=== PATIENT | female | born 1945 | race Caucasian/White ===

== ENCOUNTER 2025-01-27 18:08 | Emergency (ER) | payer OTHER, SELFPAY ==
[2025-01-27 18:08] VITALS: BMI 26.4
[2025-01-27 18:10] VITALS: BP 143/84
[2025-01-27 18:34] LABS: Hematocrit 40.5 % (37.0-47.0); Hemoglobin 13.4 g/dL (12.0-16.0); Mean Corp Hgb Conc. 33.1 g/dL (33.0-37.0); Mean Corpuscular Volume 89.8 fL (81.0-99.0); Nucleated Red Blood Cells % 0 %; Platelet Count 270 10^3/uL (130-400); Red Cell Dist. Width 14.1 % (11.5-14.5)
[2025-01-27 18:55] LABS: ALT (SGPT) < 10 U/L (0-35); AST (SGOT) 15 U/L (14-36); Albumin 4.5 g/dl (3.5-5.0); Alkaline Phosphatase 82 U/L (38-126); Blood Urea Nitrogen 15 mg/dl (7-17); Calcium 9.5 mg/dl (8.4-10.2); Carbon Dioxide 27 mmol/L (22-30); Chloride 101 mmol/L (98-107); Glucose 103 mg/dl (70-99); Potassium 3.9 mmol/L (3.5-5.1); Sodium 136 mmol/L (135-145); Total Protein 8.0 g/dl (6.3-8.2); eGFR > 60.00
[2025-01-27 21:17] VITALS: BP 163/93
[2025-01-27 22:00] VITALS: BP 144/79
[2025-01-27 23:00] VITALS: BP 142/78
--- NOTE | 2025-01-27 23:20 | ED.GENMED ---
History of Present Illness
<Jacky Crowley MD, Resident - Last Filed: 01/29/25 14:13>
General
Chief Complaint: Breathing Problem
Source: patient
Time Seen by Provider: 01/27/25 23:00
History of Present Illness
History of Present Illness:
Ms. Greenberg is a 79-year-old female with hypothyroidism and hypertension who presents via ambulance from her doctor's office with 3 weeks of 'tightness' in her neck, 2 weeks of left-sided congestion, and recent cough. She reports that she was at
her doctor's appointment today, which she scheduled in order to work up the reason for her congestion and cough. At her appointment, the nurse felt that Ms. Greenberg had decreased breath sounds on the left and possible pneumonia. She recommended
that Ms. Greenberg to come to the ED via ambulance [facility] for further evaluation and treatment. Mr. Greenberg denies fevers, chills, night sweats, pain, production of phlegm, and recent infection. She feels symptomatically better laying on her right side
vs flat or on her left side. She states that she has had about a 22 pound weight loss since May, which she attributes to her TSH being very high. Her thyroid medication was just adjusted on 01/07/2025 because of this.
Past History
<Jacky Crowley MD, Resident - Last Filed: 01/29/25 14:13>
Past History
ED Past Medical History: HTN and Hypothyroidism
ED Past Surgical History: Orthopedic
Social History
Living: alone
Phy Exam
<Jacky Crowley MD, Resident - Last Filed: 01/29/25 14:13>
General Physical Exam
General Presentation: mild distress
General Skin: warm and dry
General Mental: alert
Cardiovascular Exam
Cardiovascular Exam: regular rate/rhythm and no edema
Pulmonary Exam
Pulmonary Exam: no respiratory distress, decreased breath sounds (over left lung) and other (expiratory wheezing)
Gastrointestinal Exam
Gastrointestinal Exam: non tender, soft and non distended
Scores
<Jacky Crowley MD, Resident - Last Filed: 01/29/25 14:13>
Heart Failure Risk
Heart Failure Risk Score: Not Applicable
Course
<Jacky Crowley MD, Resident - Last Filed: 01/29/25 14:13>
Orders/Labs/Results
Orders:
Orders
01/27/25 18:14
Electrocardiogram (*1) Urgent
Reason for Study: Shortness of Breath
EKG- Treatment ONCE
CXR2 [CR Chest - 2 Views ] Urgent
Comment:
Reason For Exam: sob on exertion x2-3 wks
01/27/25 18:26
Complete Blood Count/With Diff Urgent
Comprehensive Metabolic Panel Urgent
TSH Reflex To Free T4 Urgent
Comment: ADD ON
01/27/25 23:38
Add On- LAB Urgent
Tests Added?: TSH with reflex to T4
01/27/25 23:46
COVID-19 Antigen Urgent
Source: Nasal Swab
01/28/25
CT Chest With Iv Contrast Urgent
Reason For Exam: mass on CXR
Abnormal Lab Results
01/27/25
18:26
Neutrophils % 76.4 H %
(42.2-75.2)
Lymphocytes % 15.3 L %
(20.5-51.1)
Glucose 103 H mg/dl
(70-99)
01/27/25 18:26
01/27/25 18:26
Vital Signs
Initial and Last Documented VS:
Initial Vital Signs
Temp Pulse Resp BP Pulse Ox
98.2 F 85 16 143/84 98
01/27/25 18:10 01/27/25 18:10 01/27/25 18:10 01/27/25 18:10 01/27/25 18:10
Last Documented Vital Signs
Temp Pulse Resp BP Pulse Ox
98.2 F 76 20 139/72 90
01/27/25 18:10 01/28/25 02:00 01/28/25 02:00 01/28/25 02:00 01/28/25 02:00
<Moises Lynn, DO - Last Filed: 01/28/25 02:09>
Orders/Labs/Results
Orders:
Orders
01/27/25 18:14
Electrocardiogram (*1) Urgent
Reason for Study: Shortness of Breath
EKG- Treatment ONCE
CXR2 [CR Chest - 2 Views ] Urgent
Comment:
Reason For Exam: sob on exertion x2-3 wks
01/27/25 18:26
Complete Blood Count/With Diff Urgent
Comprehensive Metabolic Panel Urgent
TSH Reflex To Free T4 Urgent
Comment: ADD ON
01/27/25 23:38
Add On- LAB Urgent
Tests Added?: TSH with reflex to T4
01/27/25 23:46
COVID-19 Antigen Urgent
Source: Nasal Swab
01/28/25
CT Chest With Iv Contrast Urgent
Reason For Exam: mass on CXR
Abnormal Lab Results
01/27/25
18:26
Neutrophils % 76.4 H %
(42.2-75.2)
Lymphocytes % 15.3 L %
(20.5-51.1)
Glucose 103 H mg/dl
(70-99)
01/27/25 18:26
01/27/25 18:26
Vital Signs
Initial and Last Documented VS:
Initial Vital Signs
Temp Pulse Resp BP Pulse Ox
98.2 F 85 16 143/84 98
01/27/25 18:10 01/27/25 18:10 01/27/25 18:10 01/27/25 18:10 01/27/25 18:10
Last Documented Vital Signs
Temp Pulse Resp BP Pulse Ox
98.2 F 76 20 139/72 90
01/27/25 18:10 01/28/25 02:00 01/28/25 02:00 01/28/25 02:00 01/28/25 02:00
<Jacky Crowley MD, Resident - Last Filed: 01/29/25 14:13>
MDM/Problems Addressed
Differential Diagnosis Includes:
Thymoma
Lymphoma
Thyroid/Parathyroid Mass
PNA
Lymphangioma
MDM/Problems Addressed:
Ms. Greenberg is a 79-year-old female with hypothyroidism and hypertension who presents via ambulance from her doctor's office with 3 weeks of 'tightness' in her neck, 2 weeks of left-sided congestion, and recent cough. CXR in ED shows large right
hilar/mediastinal mass for which further evaluation with dedicated CT chest is recommended.
#Mediastinal Mass
#Left-sided Congestion
#Cough
- CXR as above
- CBC and CMP wnl
- CT Chest with IV Contrast:
Large mass likely with epicenter in the medial right upper lobe extending to the hilum, highly suspicious for malignancy with likely malignant mediastinal and right hilar lymphadenopathy as well as small right upper lobe satellite lesion suspicious
for malignancy, as detailed above.
Mild pericardial thickening and/or tiny pericardial effusion.
Left adrenal gland thickening, incompletely included on this study.
- TSH 0.9
- Covid 19 (-)
- Discharged with instructions to follow-up with Thoracic Surgery (Dr. Serge Moore)
<Jacky Crowley MD, Resident - Last Filed: 01/29/25 14:13>
*Pulse Oximetry
SaO2: 95
Oxygen Mode of Delivery: Room air
Patient hypoxic: no
*Critical Care Note
Total Time (30-74mins, 75-104mins- exclusive of procedures): Not Applicable
ED Attending Note
<Jacky Crowley MD, Resident - Last Filed: 01/29/25 14:13>
-
Portions of this chart may have been created with voice recognition software.� Occasional wrong word or��sound alike� substitutions may have occurred due to the inherent limitations of voice recognition software.
<Moises Lynn, - Last Filed: 01/28/25 02:09>
ED Attending Note
Patient seen and examined by attending physician: Yes
I performed a history and physical exam of patient and discussed management with resident, I reviewed resident's note and agree with documented findings and plan of care.: Yes
ED Attending Note:
I reviewed and agree with history and treatment plan by Jacky Crowley MD.
My exam revealed
Physical Exam
General: no apparent distress, not acutely ill
Neck: supple. no meningeal signs. normal posterior pharynx
Heart: s1/s2 regular rate and rhythm, no murmur. equal radial
pulses.
HEENT: Pupils equal round reactive to light, EOMI
Lungs: no acute respiratory distress. clear bilaterally, intermittent cough
Abdomen: normal bowel sounds. not tender. no CVAT
Neuro: alert and oriented. no focal neurological deficits cranial nerves II through XII intact
Skin: no rash
Psychiatric: well kept. interactive and cooperative
Extremities: no edema. no calf tenderness. negative homans. good distal pulses
79-year-old female with right upper lobe mass. Vital signs stable. Discharge patient to follow-up with Serge Moore thoracic surgical oncologist. Return precautions given.
Discharge Plan
Departure
Patient Disposition: Home (Routine Discharge)
Date of Disposition: 01/28/25
Time of Disposition: 02:07
Patient with high blood pressure during this ER visit?: Yes
Condition: Good
Discharge Problem:
Mass of upper lobe of right lung
Instructions: Lung cancer, BLOOD PRESSURE
Prescriptions:
No Action
ibuprofen 200 mg Tablet
200 mg PO Q6H PRN (Reason: arthritis, pain)
Referrals:
Angelito Peña I., [Family Provider, Internal Medicine]
Serge Moore MD [Active, Surgical] - Call in 1-3 days for appt
Interventions
Interventions:
*Risk Screen - Suicide Last Done: 01/27/25 18:10
*General Assessment Last Done: 01/28/25 02:45
*Neglect/Abuse Screening Last Done: 01/27/25 18:10
*ED- Fall Risk Assessment Last Done: 01/28/25 02:45
*ED COVID-19 Vaccine History Last Done: 01/28/25 02:45
*Nursing Disposition Last Done: 01/28/25 02:45
ED- Cardiac Assessment Last Done: 01/27/25 21:44
ED- Pulmonary Assessment Last Done: 01/27/25 21:44
Discharge Date and Time
Discharge Date/Time: 01/28/25 02:47
Print Language: SOMALI
[2025-01-28] VITALS: BP 151/80
[2025-01-28 00:02] LABS: COVID-19 Antigen Negative (Negative)
[2025-01-28 01:14] VITALS: BP 143/75
[2025-01-28 02:00] VITALS: BP 139/72
== END 2025-01-28 02:47 | disposition home or self-care (01) ==
LOC: EMR 18:08
PROVIDERS: Emergency Medicine; EMERGENCY PHYSICIAN Emergency Medicine; FAMILY PHYSICIAN Internal Medicine
DX: R91.8 Other nonspecific abnormal finding of lung field (principal); E03.9 Hypothyroidism, unspecified; I10 Essential (primary) hypertension
CPT/HCPCS: 99285; 71046; 71260; 80053; 84443; 85025; 87811; 93005; Q9967

== ENCOUNTER 2025-02-07 16:10 | Emergency (ER) | payer OTHER, SELFPAY ==
[2025-02-07 16:12] VITALS: BP 138/74
--- NOTE | 2025-02-07 18:48 | ED.GENMED ---
History of Present Illness
General
Chief Complaint: DVT/Possible Blood Clot
Source: patient
Exam Limitations: none
Time Seen by Provider: 02/07/25 17:56
Nursing documentation reviewed up to this point in time: agreed with
History of Present Illness
History of Present Illness:
79-year-old female with a past medical history as noted presents to the ER for evaluation of left arm redness and swelling. Patient reports that last week she had CT done for mass noted on chest x-ray and had an IV placed in her left arm at that
time (found during ER visit). She says that over the past few days she started to develop redness in the area of IV placement and it has progressed into the forearm and upper arm today which prompted her to go to urgent care and ultimately she was
referred to the ER. She reports mild pain but denies any other acute complaints. She denies any chest pain or shortness of breath�in fact she was having some shortness of breath over the past few weeks but it has improved recently. She denies any
other acute complaints. She denies any history of DVT/PE. She has been following with Dr. Nicholas for her lung mass and plan is for biopsy in the near future pending cardiac clearance/risk assessment.
Past History
Past History
ED Past Medical History: HTN and Hypothyroidism
ED Past Surgical History: Orthopedic
Social History
Living: alone
Review of Systems
Review of Systems
All Other Systems: ROS reviewed and negative except as documented in HPI and ROS
Constitutional: Denies fever
Respiratory: Denies trouble breathing
Cardiac: Denies chest pain
ABD/GI: Denies abdominal pain
: Denies flank pain
Musculoskeletal: Reports edema; Denies neck pain or back pain
Skin: Reports other (Left arm redness)
Phy Exam
Physical Exam
Physical Exam:
General: Awake, alert, oriented x3; no acute distress
Head: Normocephalic, atraumatic
Eyes: Conjunctiva normal
Throat: Airway intact, handling secretions
Neck: Trachea midline, supple without meningismus
Lungs: Breathing comfortably with no distress
Heart: Regular rate
Neuro: Grossly intact
Skin: no rash
Extremities: Patient has erythema on the ventral surface of the left forearm just distal to the antecubital fossa and has some edema in the left forearm and upper arm; small streaking erythema up the medial aspect of the upper arm; mildly tender to
touch along the area of erythema; strong left radial pulse present; no edema in the legs or the right arm
Scores
Heart Failure Risk
Heart Failure Risk Score: Not Applicable
Heart Score for Chest Pain Patients
STEMI patient?: Not applicable
Withdrawal Assessment of Alcohol
Withdrawal Assessment Completed?: Not applicable
Course
Orders/Labs/Results
Orders:
Orders
02/07/25 16:17
US Periph Venous UPPER Ext LT Urgent
Comment:
Reason For Exam: swelling to LUE
02/07/25 18:55
Basic Metabolic Panel Urgent
Complete Blood Count/No Diff Urgent
TSH Reflex To Free T4 Urgent
02/07/25 19:13
Apixaban [Eliquis] 10 mg PO ONCE ONE
Abnormal Lab Results
02/07/25
18:55
MCHC 32.9 L g/dL
(33.0-37.0)
Glucose 105 H mg/dl
(70-99)
02/07/25 18:55
02/07/25 18:55
Vital Signs
Initial and Last Documented VS:
Initial Vital Signs
Temp BP Pulse Ox
37.2 C 138/74 117
02/07/25 16:12 02/07/25 16:12 02/07/25 16:12
Last Documented Vital Signs
Temp Pulse Resp BP Pulse Ox
36.7 C 89 18 147/90 99
02/07/25 19:15 02/07/25 19:15 02/07/25 19:15 02/07/25 19:15 02/07/25 18:57
MDM/Problems Addressed
Differential Diagnosis Includes:
DVT, cellulitis, thrombophlebitis
MDM/Problems Addressed:
79-year-old female presents for evaluation of redness and swelling of the left upper arm after IV placed for CT last week. Vitals and exam as above. She was sent for an ultrasound in triage which showed nonocclusive thrombus in the left axillary
cephalic and basilic veins as well as in one of the brachial veins consistent with nonocclusive DVT. Will plan to start on Eliquis but send basic labs to check renal function, platelets and hemoglobin.
Labs showed no clinically significant abnormalities. Patient given first dose of Eliquis here and given instructions on follow-up plan. All questions answered.
*Radiology
Radiology exam reviewed: radiology read reviewed
*Pulse Oximetry
SaO2: 99
Oxygen Mode of Delivery: Room air
Patient hypoxic: no (99%)
*Critical Care Note
Total Time (30-74mins, 75-104mins- exclusive of procedures): Not Applicable
Data Reviewed
Review of Other/Old Records Reveals: Labs, Records and Radiology Studies
ED Attending Note
-
Portions of this chart may have been created with voice recognition software.� Occasional wrong word or��sound alike� substitutions may have occurred due to the inherent limitations of voice recognition software.
Discharge Plan
Departure
Patient Disposition: Home (Routine Discharge)
Date of Disposition: 02/07/25
Time of Disposition: 19:38
Patient with high blood pressure during this ER visit?: Yes
Discharge Problem:
Deep vein thrombosis (DVT) of left upper extremity
Instructions: Deep Vein Thrombosis (Blood Clots in the Legs) (DC)
Prescriptions:
New
Eliquis 5 mg tablet
5 mg PO BID Qty: 60 0RF
Eliquis 5 mg tablet
10 mg PO BID 7 Days Qty: 28 0RF
Rx Instructions:
You should take 10 mg twice daily for 1 week; take 5 mg twice daily thereafter
No Action
ibuprofen 200 mg Tablet
200 mg PO Q6H PRN (Reason: arthritis, pain)
Referrals:
Angelito Peña DO [Family Provider, Internal Medicine] - Follow up in 1 week
Alessia Romero MD [Active, Hematology / Oncology] - Call in 1-3 days for appt
Referral Note: Hematology
Activity Restrictions/Additional Instructions:
You can apply warm compresses to your arm to try and help with the redness and swelling. You should take the blood thinner as prescribed�please note that for the Eliquis dosing in the first week you should take 10 mg (2 tabs) twice daily;
thereafter you should continue taking 5 mg twice daily. 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
Thank you for visiting the Emergency Department at [facility].
1. Please schedule a follow up appointment as directed. Call first thing tomorrow morning to make an appointment.
2. If indicated, please take your medications as instructed and indicated on discharge paperwork.
3. If any of your symptoms do not improve, or persist, or become more severe within 6-12 hours, please return to the emergency department for further care.
4. Please return to the emergency department if you develop a headache, neck pain/stiffness, fever greater than 100.4F, chest pain, shortness of breath, persistent nausea, vomiting, slurred speech, difficulty walking, numbness/tingling, weakness,
signs of infection or any other symptoms that are worrisome to you.
Please call [phone] if you have any questions.
Interventions
Interventions:
*Risk Screen - Suicide Last Done: 02/07/25 16:15
*General Assessment Last Done: 02/07/25 18:00
*Neglect/Abuse Screening Last Done: 02/07/25 16:15
*ED COVID-19 Vaccine History Last Done: 02/07/25 18:00
ED- Cardiac Assessment Last Done: 02/07/25 18:00
ED- Pulmonary Assessment Last Done: 02/07/25 18:00
ED-Peripheral Vascular Assessment Last Done: 02/07/25 18:00
ED-Skin Assessment Last Done: 02/07/25 18:00
Discharge Date and Time
Print Language: [id number]
[2025-02-07 19:08] LABS: Hematocrit 38.6 % (37.0-47.0); Hemoglobin 12.7 g/dL (12.0-16.0); Mean Corp Hgb Conc. 32.9 g/dL (33.0-37.0); Mean Corpuscular Volume 89.6 fL (81.0-99.0); Platelet Count 294 10^3/uL (130-400); Red Cell Dist. Width 14.0 % (11.5-14.5)
[2025-02-07 19:15] VITALS: BP 147/90
[2025-02-07] MEDS: ELIQUIS 10 MG PO (19:24)
[2025-02-07 19:25] LABS: Blood Urea Nitrogen 13 mg/dl (7-17); Calcium 9.5 mg/dl (8.4-10.2); Carbon Dioxide 26 mmol/L (22-30); Chloride 101 mmol/L (98-107); Glucose 105 mg/dl (70-99); Potassium 3.9 mmol/L (3.5-5.1); Sodium 135 mmol/L (135-145); eGFR > 60.00
== END 2025-02-07 19:48 | disposition home or self-care (01) ==
LOC: EMR 16:10
PROVIDERS: EMERGENCY PHYSICIAN Emergency Medicine; FAMILY PHYSICIAN Internal Medicine
DX: I82.622 Acute embolism and thrombosis of deep veins of left upper extremity (principal); I10 Essential (primary) hypertension; E03.9 Hypothyroidism, unspecified
CPT/HCPCS: 99284; 80048; 84443; 85027; 93971

== ENCOUNTER → 2025-02-18 15:23 | Outpatient (REF) | payer OTHER, SELFPAY | LOC: HWRCS 15:23 | PROVIDERS: ATTENDING PHYSICIAN Internal Medicine Cardiovascular Disease; FAMILY PHYSICIAN Internal Medicine | DX: Z01.818 Encounter for other preprocedural examination (principal) | CPT/HCPCS: 93306 ==

== ENCOUNTER 2025-02-25 14:17 | Inpatient (IN) | payer OTHER, SELFPAY ==
[2025-02-25] VITALS (7 sets, daily range): BP systolic 116–130; BP diastolic 61–83; BMI 24.8
--- NOTE | 2025-02-25 11:43 | ED.GENMED ---
History of Present Illness
<Oumar Jorge PA-C - Last Filed: 02/25/25 13:40>
General
Chief Complaint: Breathing Problem
Source: patient, records and ambulance crew
Time Seen by Provider: 02/25/25 11:19
History of Present Illness
History of Present Illness:
79-year-old female diagnosed recently with a right upper lung mass earlier in January, second visit in the month just a couple of days ago diagnosed with a left upper extremity DVT, currently on Eliquis presenting to the emergency department for
evaluation with EMS from home due to worsening shortness of breath that started this morning but patient stating that it has been progressive over the last month since her diagnosis. She is currently on 4 L nasal cannula, notes that she normally
has never needed O2 requirements. Notes that she has had significant exertional dyspnea. Waiting to hear from the platform inspector office for when she is going to go for her bronchoscopy/biopsy of the mass. She endorses cough but nonproductive, no
hemoptysis. Denies any fevers, chest pain, pleurisy, lower extremity edema. No other concerns at this time.
Past History
<Oumar Jorge PA-C - Last Filed: 02/25/25 13:40>
Past History
ED Past Medical History: Cancer, HTN and Hypothyroidism
ED Past Surgical History: Orthopedic and Tonsilectomy
Social History
Tobacco: Smoker (1/2 ppd x 60 years)
Alcohol: Occasional
Drug: None
Personal:
Living: alone
Review of Systems
<Oumar Jorge PA-C - Last Filed: 02/25/25 13:40>
Review of Systems
All Other Systems: ROS reviewed and negative except as documented in HPI and ROS
Phy Exam
<Oumar Jorge PA-C - Last Filed: 02/25/25 13:40>
Physical Exam
Physical Exam:
GENERAL: Alert , appears older than stated age, uncomfortable, dyspneic
HEAD: Normocephalic atraumatic
EYE: Clear conjunctiva
NECK: Supple
ENT: o/p clr, mmm.
CARDIAC: Regular rate and rhythm .
LUNGS: Rhonchorous lung sounds throughout with scattered wheezing most pronounced in the posterior lung montoya, diminished lung sounds right upper lung, mild accessory muscle use and tachypnea noted
ABDOMEN: Soft, without focal tenderness, no r/g, no cvat
NEUROLOGICAL: Alert and oriented
SKIN: Warm and dry, skin intact.
MUSCULOSKELETAL: well perfused. no edema
PSYCH: Normal and appropriate interaction.
Scores
<Oumar Jorge PA-C - Last Filed: 02/25/25 13:40>
Heart Failure Risk
Heart Failure Risk Score: Not Applicable
Heart Score for Chest Pain Patients
STEMI patient?: Not applicable
Withdrawal Assessment of Alcohol
Withdrawal Assessment Completed?: Not applicable
Course
<Oumar Jorge PA-C - Last Filed: 02/25/25 13:40>
Orders/Labs/Results
Orders:
Orders
02/25/25 11:26
Electrocardiogram (*1) Urgent
Reason for Study: Shortness of Breath
EKG- Treatment ONCE
CXR Port [CR Chest Portable - 1 View] Urgent
Comment:
Reason For Exam: sob
Reason Study Needs to be Portable: Patient Unstable
02/25/25 11:29
Ipratropium/Albuterol Sulfate [Duoneb] 3 ml INH R NOW ONE
MethylPREDNISolone PF [Solu-Medrol Pf] 40 mg IV NOW STA
02/25/25 12:09
COVID-19 Antigen Urgent
Source: Nasal Swab
Complete Blood Count/With Diff Urgent
NT-proBNP Urgent
Troponin I Urgent
Venous Blood Gas Urgent
%Oxygen/Room Air: 4L NC
02/25/25 12:11
Cefepime HCl [Maxipime] 2,000 mg IV NOW STA
02/25/25 13:04
Comprehensive Metabolic Panel Urgent
02/25/25 13:20
Sterile Water [Sterile Water For Injection] 10 ml .ROUTE .STK-MED ONE
Abnormal Lab Results
02/25/25 02/25/25
12:09 13:04
WBC 11.5 H 10^3/uL
(4.8-10.8)
MCHC 32.4 L g/dL
(33.0-37.0)
RDW 14.7 H %
(11.5-14.5)
Absolute Neuts (auto) 10.6 H 10^3/uL
(1.4-6.5)
Absolute Lymphs (auto) 0.5 L 10^3/uL
(1.2-3.4)
Neutrophils % 91.8 H %
(42.2-75.2)
Lymphocytes % 4.3 L %
(20.5-51.1)
VBG pO2 55 H mmHg
(30-50)
VBG HCO3 29.2 H mmol/L
(22-27)
Glucose 111 H mg/dl
(70-99)
02/25/25 12:09
02/25/25 13:04
Vital Signs
Initial and Last Documented VS:
Initial Vital Signs
Temp Pulse Resp BP Pulse Ox
98.0 F 63 16 128/76 99
02/25/25 11:17 02/25/25 11:17 02/25/25 11:17 02/25/25 11:17 02/25/25 11:17
Last Documented Vital Signs
Temp Pulse Resp BP Pulse Ox
98.0 F 88 24 126/77 100
02/25/25 11:17 02/25/25 12:45 02/25/25 12:45 02/25/25 12:00 02/25/25 12:45
<Bentley Quach MD - Last Filed: 02/25/25 13:48>
Orders/Labs/Results
Orders:
Orders
02/25/25 11:26
Electrocardiogram (*1) Urgent
Reason for Study: Shortness of Breath
EKG- Treatment ONCE
CXR Port [CR Chest Portable - 1 View] Urgent
Comment:
Reason For Exam: sob
Reason Study Needs to be Portable: Patient Unstable
02/25/25 11:29
Ipratropium/Albuterol Sulfate [Duoneb] 3 ml INH R NOW ONE
MethylPREDNISolone PF [Solu-Medrol Pf] 40 mg IV NOW STA
02/25/25 12:09
COVID-19 Antigen Urgent
Source: Nasal Swab
Complete Blood Count/With Diff Urgent
NT-proBNP Urgent
Troponin I Urgent
Venous Blood Gas Urgent
%Oxygen/Room Air: 4L NC
02/25/25 12:11
Cefepime HCl [Maxipime] 2,000 mg IV NOW STA
02/25/25 13:04
Comprehensive Metabolic Panel Urgent
02/25/25 13:20
Sterile Water [Sterile Water For Injection] 10 ml .ROUTE .STK-MED ONE
Abnormal Lab Results
02/25/25 02/25/25
12:09 13:04
WBC 11.5 H 10^3/uL
(4.8-10.8)
MCHC 32.4 L g/dL
(33.0-37.0)
RDW 14.7 H %
(11.5-14.5)
Absolute Neuts (auto) 10.6 H 10^3/uL
(1.4-6.5)
Absolute Lymphs (auto) 0.5 L 10^3/uL
(1.2-3.4)
Neutrophils % 91.8 H %
(42.2-75.2)
Lymphocytes % 4.3 L %
(20.5-51.1)
VBG pO2 55 H mmHg
(30-50)
VBG HCO3 29.2 H mmol/L
(22-27)
Glucose 111 H mg/dl
(70-99)
02/25/25 12:09
02/25/25 13:04
Vital Signs
Initial and Last Documented VS:
Initial Vital Signs
Temp Pulse Resp BP Pulse Ox
98.0 F 63 16 128/76 99
02/25/25 11:17 02/25/25 11:17 02/25/25 11:17 02/25/25 11:17 02/25/25 11:17
Last Documented Vital Signs
Temp Pulse Resp BP Pulse Ox
98.0 F 88 24 126/77 100
02/25/25 11:17 02/25/25 12:45 02/25/25 12:45 02/25/25 12:00 02/25/25 12:45
<Oumar Jorge PA-C - Last Filed: 02/25/25 13:40>
MDM/Problems Addressed
Differential Diagnosis Includes:
Progression of lung cancer
Malignant effusion
PE
Pneumonia or other infectious etiology
Pneumothorax
COPD
Less likely ACS
CHF
MDM/Problems Addressed:
79-year-old female presenting to the ER with EMS for progressively worsening shortness of breath, made acutely worse this morning. Currently in the early stages of workup for suspected right upper lobe lung cancer. Patient notes some frustration
with the outpatient workup process as she has not heard back from the pulmonology office about her bronchoscopy. Arrives to the ER with significant work of breathing, 1 sentence dyspneic and appears short of breath. Will continue on 4 L nasal
cannula. I did consider a stat CTA of the chest to rule out PE however patient is already on Eliquis, properly dosed and did have a complication from the CT with IV contrast done just earlier in January. Patient is hoping to avoid getting CT
scan here. Will treat with a nebulizer and dose of steroid. Stat chest x-ray ordered. Plan for admission
Chronic conditions affecting care: Cancer
Acute Exacerbation and/or Progression of Chronic Illness: Cancer
<Oumar Jorge PA-C - Last Filed: 02/25/25 13:40>
*Radiology
Radiology exam reviewed: preliminary read by ED provider (Continued right upper lobe lung mass, bilateral small effusion)
*Pulse Oximetry
SaO2: 99
Oxygen Mode of Delivery: Room air
Patient hypoxic: no
*Laboratory Chief Interpretation
Rate: normal
Heart Rate: 68
Rhythm: sinus
*Critical Care Note
Total Time (30-74mins, 75-104mins- exclusive of procedures): Not Applicable
Data Reviewed
Review of Other/Old Records Reveals: Labs, Records, Radiology Studies and Discharge Summary
<Oumar Jorge PA-C - Last Filed: 02/25/25 13:40>
Patient Management
Discussion with other providers: Hospitalist and [employer]ologist
Escalation/DeEscalation of care consider admission/obs:
Patient's labs noted for a mild leukocytosis. Chest x-ray was read by radiology as now new consolidation within the right upper lobe to go along with her known right upper lung mass. Will cover with Maxipime. Patient noted minimal improvement of
her shortness of breath following nebulizer treatment although physical exam sterling she had a much improved respiratory rate. I also notified pulmonary to see the patient in consult. Hospitalist team accepts for continued evaluation and treatment.
ED Attending Note
<Oumar Jorge PA-C - Last Filed: 02/25/25 13:40>
-
Portions of this chart may have been created with voice recognition software.� Occasional wrong word or��sound alike� substitutions may have occurred due to the inherent limitations of voice recognition software.
<Bentley Quach MD - Last Filed: 02/25/25 13:48>
ED Attending Note
Patient seen and examined by attending physician: Yes
ED Attending Note:
Patient recently diagnosed with lung cancer and subsequently left upper arm DVT, currently on Eliquis, presents to ED secondary to continual cough with worsening shortness of breath over the past 1 month. Patient upon arrival, found to be in no
acute respite distress, although is not hypoxic with the use of accessory muscle. Denies chest pain. Denies vomiting or diarrhea. Denies fever or chills.
Physical Exam
General: moderate respiratory distress, not acutely ill. afebrile.
Head: nc/at. eomi
Neck: supple. no jvd
Heart: s1/s2 regular rate and rhythm
Lungs: moderate respiratory distress. diminished breath sounds bilaterally. mild use of intercostal muscles noted
Abdomen: normal bowel sounds. not tender.
Neuro: alert and oriented x 3. no focal neurological deficits
Skin: no rash
Psychiatric: well kept. interactive and cooperative
Extremities: no edema. no calf tenderness.
History, exam, and chest x-ray concerning for potential obstructive pneumonia. Patient given nebulizer treatment upon arrival and placed on supplemental oxygen for symptomatic relief. Patient will be admitted to hospital service for continual
treatment, including IV antibiotics.
Discharge Plan
Departure
Patient Disposition: Admit
Date of Disposition: 02/25/25
Time of Disposition: 13:06
Presentation/result/management discussed w/ accepting MD/DO: Hospitalist
Discharge Problem:
Mass of right lung, Shortness of breath
Prescriptions:
No Action
Eliquis 5 mg tablet
5 mg PO BID Qty: 60 0RF
levothyroxine [Synthroid] 137 mcg Tablet
137 mcg PO MOTUWETHFRSA
simvastatin [Zocor] 20 mg Tablet
20 mg PO QPM
Interventions
Interventions:
*Risk Screen - Suicide Last Done: 02/25/25 11:17
*General Assessment Last Done: 02/25/25 11:17
*Neglect/Abuse Screening Last Done: 02/25/25 11:17
Discharge Date and Time
Print Language: TURKMEN
[2025-02-25] MEDS: DUONEB 3 ML INH (12:00)
[2025-02-25] MEDS: SOLU-MEDROL PF 40 MG IV (12:00)
[2025-02-25 12:27] LABS: Hematocrit 41.1 % (37.0-47.0); Hemoglobin 13.3 g/dL (12.0-16.0); Mean Corp Hgb Conc. 32.4 g/dL (33.0-37.0); Mean Corpuscular Volume 89.5 fL (81.0-99.0); Nucleated Red Blood Cells % 0 %; Platelet Count 350 10^3/uL (130-400); Red Cell Dist. Width 14.7 % (11.5-14.5)
[2025-02-25 12:45] LABS: Venous Blood Gas B.E. 3.8 mmol/L (-4 to +4); Venous Blood Gas O2 Sat % 87.8 %
[2025-02-25 12:55] LABS: COVID-19 Antigen Negative (Negative); Troponin I < 0.012 ng/ml
[2025-02-25] MEDS: MAXIPIME 2000 MG IV (13:32)
[2025-02-25 13:39] LABS: ALT (SGPT) 14 U/L (0-35); AST (SGOT) 20 U/L (14-36); Albumin 4.0 g/dl (3.5-5.0); Alkaline Phosphatase 74 U/L (38-126); Blood Urea Nitrogen 14 mg/dl (7-17); Calcium 9.2 mg/dl (8.4-10.2); Carbon Dioxide 30 mmol/L (22-30); Chloride 101 mmol/L (98-107); Glucose 111 mg/dl (70-99); Potassium 4.0 mmol/L (3.5-5.1); Sodium 138 mmol/L (135-145); Total Protein 7.5 g/dl (6.3-8.2); eGFR > 60.00
--- NOTE | 2025-02-25 13:50 | HPS.HSE ---
Family Physician
-
Family Physician: Angelito Peña
Chief Complaint
-
Shortness of breath
History of Present Illness
79-year-old female with progressive shortness of breath, dyspnea on exertion for the past 4 to 5 weeks. Dry cough. Denies fevers or chills. Has not been on any antibiotics in the past month. Lives alone.
Originally evaluated in our emergency room January 27 for shortness of breath. At that time there was mention of 3 weeks of tightness in her neck, 2 weeks of left-sided congestion and recent cough. Weight loss noted.
CT chest with IV contrast done at the time showed large mass with likely epicenter in the medial right upper lobe extending to the hilum highly specific suspicious for malignancy as well as likely malignant appearing mediastinal and right hilar
lymphadenopathy as well as small right upper lobe satellite lesions suspicious for malignancy. Mild pericardial thickening and/or tiny pericardial effusion.
She was discharged from the emergency room with recommendation to follow-up with Dr. Serge Moore.
Developed left arm swelling, and came back to the emergency room on February 07 for evaluation. Ultrasound done of the left arm showed nonocclusive thrombus within the left axillary, left cephalic, left basilic veins. Nonocclusive thrombus within
1 of 2 left brachial veins. She was discharged from the emergency room on Eliquis. Last dose was last night.
Subsequently was referred to pulmonary for lung biopsy. She saw Dr. Nicholas in the office a few weeks ago and he recommended cardiac clearance prior to performing lung biopsy. She saw her headend technician (Dr. Garcia) who provided clearance and
referred her back to pulmonary.
Unfortunately she has not yet been able to schedule a lung biopsy.
Admits to 35 pound weight loss associated with anorexia since May of this year.
Longstanding smoking history since the age of 21, half a pack a day. Last cigarette was yesterday.
Medical History
Past Medical History
Past Medical History: Reports Other
Additional Past Medical History:
Hypothyroidism, Sg's thyroiditis
Left upper extremity DVT
Essential hypertension
Past Surgical History: Reports Other
Additional Past Surgical History:
Right total knee replacement -2003
Social History
Tobacco: Smoker
Alcohol: Occasional
Drug: None
Personal:
Living: Alone
Employment: Not Employed
Family History
Family History: Not pertinent
Allergies / Home Medications
Allergies reflects when Allergies were last updated in [facility].
Home Medications with original date entered in [facility]
Allergy/Medication List:
Allergies
Allergy/AdvReac Type Severity Reaction Status Date / Time
codeine Allergy NIGHTMARES Verified 02/07/25 16:15
metoprolol Allergy dizziness Verified 02/07/25 16:15
BASE METALS Allergy Rash Uncoded 02/07/25 16:15
Home Medications
apixaban 5 mg tablet (Eliquis) 5 mg PO BID #60 tabs 02/07/25
levothyroxine 137 mcg tablet (Synthroid) 137 mcg PO MOTUWETHFRSA 02/25/25
simvastatin 20 mg tablet (Zocor) 20 mg PO QPM 02/25/25
Review of Systems
-
History Source: Patient
A 12 point ROS was completed and negative except as noted: Yes
Constitutional: Reports Weight Loss and Fatigue
Respiratory: Reports Cough and Trouble Breathing
Physical Exam
Vital Signs
Vital Signs
Temp Pulse Resp BP Pulse Ox
98.0 F 88 24 126/77 100
02/25/25 11:17 02/25/25 12:45 02/25/25 12:45 02/25/25 12:00 02/25/25 12:45
Physical Exam
General: Well Developed, Well Nourished, No Apparent Distress and Comfortable
HEENT: NormoCephalic, Anicteric and Moist mucous membranes
Respiratory: Rhonchi
Cardiac: S1/S2 and Regular Rhythm
Breast: Deferred by me
GI: Soft, Non Tender and Non Distended
Musculoskeletal: No Clubbing, No Cyanosis and Edema, Left Upper Extremity
Skin: Warm and Dry
Neuro: AO x 3
Hematologic/Lymphatic: No Lymphadenopathy
Psych: Calm
Laboratory Results
-
02/25/25 12:09
02/25/25 13:04
Laboratory Results
Total Bilirubin 0.9 mg/dl (0.2-1.3) 02/25/25 13:04
AST 20 U/L (14-36) 02/25/25 13:04
ALT 14 U/L (0-35) 02/25/25 13:04
Alkaline Phosphatase 74 U/L (38-126) 02/25/25 13:04
Troponin I < 0.012 ng/ml 02/25/25 12:09
Impression/Plan
-
Acute hypoxic respiratory failure -suspect multifactorial etiology including lung mass, postobstructive pneumonia, possible underlying COPD. Pulmonary embolism possible but seems less likely as she is already on anticoagulation.
Oxygenation stable on 4 L nasal cannula. Not on oxygen at home.
Admit to MedSurg.
Initiate treatment for possible COPD exacerbation given presentation with shortness of breath, wheezing, cough, and rhonchi. Prednisone, nebs, Mucinex, antibiotics.
Presumed community-acquired pneumonia -possibly postobstructive pneumonia in the setting of suspected lung cancer. Start ceftriaxone, azithromycin. Check urinary antigens.
Right-sided lung mass -highly suspicious for primary lung cancer. Has yet to get a biopsy. Consult pulmonary.
Hold Eliquis, use IV heparin pending biopsy.
Recent left upper extremity DVT -IV heparin as above.
Patient cannot afford to take further Eliquis given its high cost. She has been using samples provided to her from various physicians. She would prefer to switch to warfarin on discharge.
Hypothyroidism -on levothyroxine 137 mcg daily. Dose was reduced to 6 days a week due to elevated thyroid hormone levels.
TSH 1.38 on 02/07/2025.
Essential hypertension -previously on ramipril and hydrochlorothiazide but discontinued due to hypotension. Currently not on antihypertensives.
Hyperlipidemia -she is on simvastatin.
Tobacco dependence -smoking cessation advised.
Full code
[2025-02-25 17:39] LABS: APTT 26.4 Sec (23.4-35.0)
--- NOTE | 2025-02-25 17:50 | CON.PUL ---
Consultation
Consultation Request
Date/Time Consultation Requested: 02/25/2025
Date/Time Consultation Performed: 02/25/2025
Requesting Provider: Dr. Banegas
Performing Provider: Dr. Brian Watts
Reason for Consultation: Lung mass/possible postobstructive pneumonia
Medical History
-
History of Present Illness:
79-year-old woman who is a smoker, recently diagnosed with a lung mass and Rhonda. CAT scan of 01/28/2025 showed large masslike in the center of the medial right upper lobe. Multiple mediastinal lymphadenopathy.
Patient was seen by Dr. Nicholas in the outpatient office. Plan was to schedule bronchoscopy, patient required cardiac clearance first as she was having some cardiac symptoms. She was seen by Dr. Uribe on 02/18/2025. Cardiology assessment
recommending proceeding with bronchoscopy at a moderate risk.
-
Patient returns to the hospital on 02/25/2025 with progressive shortness of breath, dyspnea on exertion for the last 4 to 5 weeks. Dry cough. Denies fevers or chills. Denies hemoptysis.
Patient lives alone.
Developed left arm swelling at that time on February 07 showed nonocclusive thrombus of the left axillary, left cephalic left basilic veins. Nonocclusive thrombus of the brachial veins. Discharged on Eliquis-last dose taken on 02/24/2025.
-
Patient reports 30 pound weight loss with anorexia.
-
Ongoing smoking, last cigarette was yesterday.
-
We were consulted on 02/25/2025 for evaluation.
Past Medical History
Past Medical History: Other (See assessment and plan)
Social History
Tobacco: Smoker
Alcohol: Occasional
Drug: None
Personal:
Living: Alone
Employment: Not Employed
Family History
Family History: Reviewed & Not Pertinent
Allergies / Home Medications
Allergies
Allergy/AdvReac Type Severity Reaction Status Date / Time
codeine Allergy NIGHTMARES Verified 02/07/25 16:15
metoprolol Allergy dizziness Verified 02/07/25 16:15
BASE METALS Allergy Rash Uncoded 02/07/25 16:15
Home Medications
�Medication �Instructions �Recorded �Confirmed �Last Taken �Type
apixaban 5 mg tablet (Eliquis) 5 mg PO BID #60 tabs 02/07/25 02/25/25 02/24/25 Rx
levothyroxine 137 mcg tablet 137 mcg PO MOTUWETHFRSA 02/25/25 02/25/25 02/24/25 History
(Synthroid)
simvastatin 20 mg tablet (Zocor) 20 mg PO QPM 02/25/25 02/25/25 02/24/25 History
Review of Systems
-
History Source: Patient
All other systems: Negative unless noted
Vitals / Labs / Diagnostic Testing
Vital Signs
Temp Pulse Resp BP Pulse Ox
97.8 F 108 20 130/83 98
02/25/25 16:35 02/25/25 16:35 02/25/25 16:35 02/25/25 16:35 02/25/25 16:35
Lab Data
02/25/25 13:04
Laboratory Results
02/25/25
16:12
APTT 26.4
Diagnostic Testing:
Physical Exam
-
HEENT: Normocephalic and Other (hoarse voice)
Cardiovascular: S1/S2
Respiratory: Non-Labored Respirations
GI: Soft and Non Distended
Neurology: Awake and AO x 3
Skin: Warm
General: Respiratory Distress
Assessment
-
79-year-old woman smoker, comes to the hospital complaining of progressive shortness of breath for the last 4 to 5 weeks. She recently has been diagnosed with a lung mass. Seen by Dr. Johnson in the office. Subsequently referred to cardiology for
clearance. Underwent clearance 02/18/2025. In the interim also had left upper extremity DVT and started on Eliquis in January 2025. Admitted for further evaluation.
Acute hypoxemic respiratory failure currently on 3 L.
Lung mass/mediastinal/right hilar lymphadenopathy: Suggestive of lung cancer.
CT chest 01/28/2025:Large mass likely with epicenter in the upper lobe of the right lung is seen extending from the mediastinum measuring approximately 10.4 x 7.8 x 9.0 cm with a likely small satellite nodule in the right upper lobe measuring 1.3 cm,
latter image 14 series 201. There is accompanying marked narrowing of the right upper lobe pulmonary vasculature and airways possible invasion, image 24 series 201. Extensive mediastinal and likely right hilar lymphadenopathy are noted.
There is a small right pleural effusion. Some mild pericardial thickening versus tiny pericardial effusion
Cannot rule out postobstructive pneumonia.
Chest x-ray 02/25/2025: New consolidation of the right upper lobe suggesting pneumonia. Lung mass noted as well.
Rule out postobstructive pneumonia.
Weight loss-suspect due to malignancy.
Tobacco abuse-quit prior admission-not bronchospastic on exam.
Condition present prior admission:
Hypothyroidism
Sg's thyroiditis
Left upper extremity DVT January 2025 on anticoagulation
Essential hypertension
Weight loss
Active smoker
Spirometry 01/2025: Does not suggest airflow obstruction.
Right total knee replacement 2003
Assessment and plan:
Shortness of breath likely multifactorial from progressing lung mass, cannot rule out postobstructive pneumonia as the patient has a new right upper lobe infiltrate.
I will obtain CT of the chest with IV contrast to evaluate further.
Agree with broad-spectrum antibiotics
Monitor fever curve and leukocytosis
Will check a sputum culture if patient produces phlegm.
-
Eliquis on hold-agree with heparin drip-follow PTT.
Will allow Eliquis washout--->>Plan for bronchoscopy with airway inspection, possible endobronchial ultrasound needle aspiration of mediastinal lymph nodes and lung mass. On February 27.
-
Discussed with patient procedure and risk and she is agreeable to proceed.
She already had moderate risk stratification by cardiology in the outpatient setting.
-
Continue with supplemental O2- currently on 3L.
IS
Not bronchospastic on exam.
-
Smoking cessation highly recommended.
-
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
Watch for aspiration.
-
Will follow

Data reviewed:
CT chest 01/28/2025:
Large mass likely with epicenter in the medial right upper lobe extending to the hilum, highly suspicious for malignancy. Malignant mediastinal and right hilar lymphadenopathies as well as small right upper lobe satellite lesion suspicious for
malignancy.
Mild pericardial thickening and tiny pericardial effusion
Left adrenal gland thickening.
Small right pleural effusion.
[2025-02-25] MEDS: ZITHROMAX 500 MG PO (17:51)
[2025-02-25] MEDS: HEPARIN 25000 UNITS/250 ML IV (18:44)
--- NOTE | 2025-02-25 18:45 | PTCARENOTE ---
Pt received from ED and walked to bed from stretcher with rolling walker. AAOx3. VSS. pt on 3L O2 and NEAL. Pt oriented to unit by this RN. ptt drawn and sent to lab. Heparin gtt started at 13mls/hr after ptt result. Call [facility] is within reach. POC
ongoing.
[2025-02-25 20:46] LABS: Hematocrit 38.9 % (37.0-47.0); Hemoglobin 12.4 g/dL (12.0-16.0); Mean Corp Hgb Conc. 31.9 g/dL (33.0-37.0); Mean Corpuscular Volume 90.5 fL (81.0-99.0); Platelet Count 361 10^3/uL (130-400); Red Cell Dist. Width 14.7 % (11.5-14.5)
[2025-02-25] MEDS: MUCINEX 600 MG PO (21:10)
[2025-02-25] MEDS: ROCEPHIN 1000 MG IV (21:11)
[2025-02-25] MEDS: STERILE WATER FOR INJECTION 10 ML IV (21:11)
[2025-02-26 01:20] LABS: APTT 26.4 Sec (23.4-35.0)
[2025-02-26] MEDS: HEPARIN 5700 UNITS IV ×2 (01:44→15:03)
[2025-02-26] MEDS: SYNTHROID 137 MCG PO (05:57)
[2025-02-26 06:00] VITALS: BMI 24.8
[2025-02-26 07:36] VITALS: BP 139/79
[2025-02-26] MEDS: MUCINEX 600 MG PO ×2 (08:33→21:29)
[2025-02-26] MEDS: ZITHROMAX 500 MG PO (08:33)
[2025-02-26] MEDS: DELTASONE 40 MG PO (08:33)
[2025-02-26 08:38] LABS: APTT 98.0 Sec (23.4-35.0)
--- NOTE | 2025-02-26 09:40 | W.PN.HOSP.TC ---
Today's Communication/Plan
-
DuoNebs
Steroids
Antibiotics
IV heparin
CT chest
N.p.o. after midnight
Assessment / Plan
Assessment / Plan
Gen-AAOx3, NAD
HEENT-NC, AT, anicteric, clear oral mm
Neck-supple
CV-reg, no M, +S1/S2
Lungs-bilateral expiratory wheezing, rhonchi
Abd-soft, NT, ND
Ext-no edema
Musculoskeletal-no cyanosis, clubbing
Skin-warm and dry
Neuro-grossly non-focal
Psych-calm, cooperative
Acute hypoxic respiratory failure -suspect multifactorial etiology including lung mass, postobstructive pneumonia, possible underlying COPD. Pulmonary embolism possible but seems less likely as she is already on anticoagulation.
Oxygenation stable on 3 L nasal cannula. Not on oxygen at home.
Acute COPD exacerbation - presentation with shortness of breath, cough, wheezing. DuoNebs [id number] and as needed. Continue steroids, Mucinex.
Presumed community-acquired pneumonia -possibly postobstructive pneumonia in the setting of suspected lung cancer. Continue ceftriaxone, azithromycin. Check urinary antigens.
Right-sided lung mass -highly suspicious for primary lung cancer.
Hold Eliquis, use IV heparin pending biopsy.
CT chest ordered by pulmonary.
N.p.o. after midnight for bronchoscopy 02/27 as per pulmonary.
Recent left upper extremity DVT -IV heparin as above.
Patient cannot afford to take further Eliquis given its high cost. She has been using samples provided to her from various physicians. She would prefer to switch to warfarin on discharge.
Hypothyroidism -on levothyroxine 137 mcg daily. Dose was reduced to 6 days a week due to elevated thyroid hormone levels.
TSH 1.38 on 02/07/2025.
Essential hypertension -previously on ramipril and hydrochlorothiazide but discontinued due to hypotension. Currently not on antihypertensives.
Hyperlipidemia -she is on simvastatin.
Tobacco dependence -smoking cessation advised.
Full code
Anticipated Discharge: > 48 hours
Subjective/Interval History
-
Date of Service: February 26, 2025
Patient seen and examined. Breathing a little bit better today compared to yesterday.
Objective Data
-
Labs:
Laboratory Results
02/26/25 02/26/25 02/26/25
00:59 07:38 14:00
APTT 26.4 98.0 H Pending
Vital Signs:
Vital Signs
Temp Pulse Resp BP Pulse Ox
98.4 F 87 16 139/79 100
02/26/25 07:36 02/26/25 07:36 02/26/25 07:36 02/26/25 07:36 02/26/25 07:36
I&O
02/25/25 02/26/25 02/27/25
06:59 06:59 06:59
Intake Total 960 / 960
Balance 960 / 960
Review of Systems
-
History Source: Patient
All other systems: Reviewed and negative
[2025-02-26] MEDS: DUONEB 3 ML INH ×3 (11:11→20:14)
[2025-02-26] MEDS: DUONEB INH (11:20)
--- NOTE | 2025-02-26 11:41 | W.PN.PUL3 ---
Today's Communication / Plan
-
Bronchoscopy tomorrow
N.p.o. after midnight
Heparin to be held 46 hours prior to procedure. Tentatively procedure scheduled for 9 AM tomorrow 02/27/2025.
Prednisone
Nebulizers
Antibiotics
Eventual thoracentesis prior to discharge
May need to get oncology involved here as it looks like the mass is growing and patient is very symptomatic.
Assessment
-
79-year-old woman smoker, comes to the hospital complaining of progressive shortness of breath for the last 4 to 5 weeks. She recently has been diagnosed with a lung mass. Seen by Dr. Johnson in the office. Subsequently referred to cardiology for
clearance. Underwent clearance 02/18/2025. In the interim also had left upper extremity DVT and started on Eliquis in January 2025. Admitted for further evaluation.
Acute hypoxemic respiratory failure currently on 3 L.
Lung mass/mediastinal/right hilar lymphadenopathy: Suggestive of lung cancer.
CT chest 01/28/2025:Large mass likely with epicenter in the upper lobe of the right lung is seen extending from the mediastinum measuring approximately 10.4 x 7.8 x 9.0 cm with a likely small satellite nodule in the right upper lobe measuring 1.3 cm,
latter image 14 series 201. There is accompanying marked narrowing of the right upper lobe pulmonary vasculature and airways possible invasion, image 24 series 201. Extensive mediastinal and likely right hilar lymphadenopathy are noted.
There is a small right pleural effusion. Some mild pericardial thickening versus tiny pericardial effusion
Cannot rule out postobstructive pneumonia.
Chest x-ray 02/25/2025: New consolidation of the right upper lobe suggesting pneumonia. Lung mass noted as well.
Rule out postobstructive pneumonia.
Developed bronchospasm: Suspect exacerbation of COPD
Weight loss-suspect due to malignancy.
Tobacco abuse-quit prior admission-not bronchospastic on exam.
Condition present prior admission:
Hypothyroidism
Sg's thyroiditis
Left upper extremity DVT January 2025 on anticoagulation
Essential hypertension
Weight loss
Active smoker
Spirometry 01/2025: Does not suggest airflow obstruction.
Right total knee replacement 2003
Assessment and plan:
Shortness of breath likely multifactorial from progressing lung mass, cannot rule out postobstructive pneumonia as the patient has a new right upper lobe infiltrate.
CT of the chest with IV contrast -reviewed showed large mass in the superior mediastinum, 10 extent X 10 cm. 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 Small cell carcinoma within the
differential diagnosis.
Mass causes occlusion of the central aspect of the right upper lobe bronchus and distal aspect of the right middle lobe bronchus.
Right upper lobe atelectasis.
Mass has been progressive compared to prior.
Moderate right pleural effusion and a small left pleural effusion. Moderate coronary calcifications.
-
Will proceed with bronchoscopy tomorrow for airway inspection and tissue biopsy.
Now that she has right upper lobe atelectasis also pulmonary toileting as she has respiratory secretions.
-
Now she has right pleural effusion: Will plan also for thoracentesis after bronchoscopy, prior to discharge. May help with her symptoms as well.
N.p.o. after midnight
Heparin will need to be Held at least 4-6 hours prior.
Procedure will be scheduled for tomorrow at 9 AM.
-
Will need to expedite oncology evaluation at some point.
-
Some of the shortness of breath possibly from acute exacerbation of COPD.
Continue with broad-spectrum antibiotics
Monitor fever curve and leukocytosis
Will check a sputum culture if patient produces phlegm.
-
Tuayllnsyj-illtlv-cyv-clock.
Oral prednisone continue-tapering dose.
-
Eliquis on hold-agree with heparin drip-follow PTT.
Hold for 46 hours prior to procedure.
Will allow Eliquis washout--->>Plan for bronchoscopy with airway inspection, possible endobronchial ultrasound needle aspiration of mediastinal lymph nodes and lung mass. On February 27-see above.
-
Discussed with patient procedure and risk and she is agreeable to proceed.
She already had moderate risk stratification by cardiology in the outpatient setting.
-
Continue with supplemental O2- currently on 3L.
Incentive spirometry encouraged.
-
Smoking cessation highly recommended.
-
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
Watch for aspiration.
-
Prognosis is guarded.
Will follow

Data reviewed:
CT chest 01/28/2025:
Large mass likely with epicenter in the medial right upper lobe extending to the hilum, highly suspicious for malignancy. Malignant mediastinal and right hilar lymphadenopathies as well as small right upper lobe satellite lesion suspicious for
malignancy.
Mild pericardial thickening and tiny pericardial effusion
Left adrenal gland thickening.
Small right pleural effusion.
Subjective Data
-
Date of Service:
Date of Service: February 26, 2025
Chief Complaint: Pulmonary Follow Up (Lung mass/pleural effusion)
Subjective:
Continues to report shortness of breath
Intermittent coughing.
Review of Systems
Cardiopulmonary: Dyspnea, Dyspnea on Exertion and Cough
Objective Data
Data Reviewed
Vital Signs / I&O / Oxygen:
Vital Signs
Temp Pulse Resp BP Pulse Ox
98.4 F 99 24 139/79 98
02/26/25 07:36 02/26/25 11:16 02/26/25 11:16 02/26/25 07:36 02/26/25 11:16
Intake and Output
02/25/25 02/26/25 02/27/25
06:59 06:59 06:59
Intake Total 960 / 960
Balance 960 / 960
SaO2 98
Nasal Cannula flow liters per 3
minute
Physical Exam
General: Comfortable
HEENT: Normocephalic
Cardiovascular: Regular Rhythm
Respiratory: Wheeze (Expiratory), Rhonchi (Mild) and Other (Decreased breath sounds right base)
GI: Soft
Neurology: Awake, Alert, Oriented and No Motor Deficits
Skin: Warm
Labs/Micro/Reports
Lab Data
02/25/25 20:39
02/25/25 13:04
Laboratory Results
02/25/25 02/26/25 02/26/25
16:12 00:59 07:38
APTT 26.4 26.4 98.0 H
[2025-02-26 12:24] VITALS: BP 120/73; BP 127/83; PULSE 100; O2SAT 96
[2025-02-26 12:25] VITALS: BP 120/73; BP 127/83; PULSE 96; O2SAT 96
[2025-02-26] MEDS: HEPARIN 25000 UNITS/250 ML IV (13:06)
[2025-02-26 13:42] VITALS: BMI 24.8
[2025-02-26 14:04] LABS: APTT 62.5 Sec (23.4-35.0)
[2025-02-26 15:33] VITALS: BP 135/86
--- NOTE | 2025-02-26 16:34 | CM ---
Alert awake oriented patient who lives alone in a 2 story home with 2 steps to enter and 16 steps to bed bathroom.She is independent in driving and in all activities of daily living.Advanced directive pkg given.Pt has new oxygen .
No adaptive devices
Had [facility]/ No SNF hx
Pharmacy [facility]
PCP Dr Brito
PLAN Will need to follow for dc planning . Watch for oxygen needs
[2025-02-26] MEDS: LIPITOR 20 MG PO (18:07)
[2025-02-26 21:29] LABS: APTT 93.4 Sec (23.4-35.0)
[2025-02-26] MEDS: ROCEPHIN 1000 MG IV (21:29)
[2025-02-26] MEDS: STERILE WATER FOR INJECTION 10 ML IV (21:29)
[2025-02-26 23:10] VITALS: BP 115/57
[2025-02-27] VITALS (9 sets, daily range): BP systolic 121–141; BP diastolic 75–91; BMI 25.6
[2025-02-27 05:57] LABS: Hematocrit 36.8 % (37.0-47.0); Hemoglobin 11.8 g/dL (12.0-16.0); Mean Corp Hgb Conc. 32.1 g/dL (33.0-37.0); Mean Corpuscular Volume 94.4 fL (81.0-99.0); Platelet Count 313 10^3/uL (130-400); Red Cell Dist. Width 14.7 % (11.5-14.5)
[2025-02-27] MEDS: SYNTHROID 137 MCG PO (06:17)
[2025-02-27] MEDS: TYLENOL 650 MG PO (06:40)
--- NOTE | 2025-02-27 07:36 | PTCARENOTE ---
Around 0630, pt complaining of 9/10 pain in left armpit and left upper chest. Pt with known DVT in left arm. Vitals are as follows: Temp: 97.9, BP: 161/98, HR: 88, SpO2: 97% on 3L, RR:20. NALDO Maurice made aware. PRN tylenol given. Refer to
MAR. No new orders at this time. MD at bedside to assess patient at shift change and made aware. Plan of care ongoing.
[2025-02-27] MEDS: DUONEB 3 ML INH ×4 (07:44→19:22)
--- NOTE | 2025-02-27 08:54 | PTCARENOTE ---
Report provided to GI lab.
--- NOTE | 2025-02-27 10:16 | W.PN.PUL3 ---
Today's Communication / Plan
-
Bronchoscopy today
Continue prednisone
Continue nebulizer
Sputum culture
Continue oxygen supplementation to maintain pulse ox above 90%. Home oxygen assessment prior to discharge
If remains short of breath will need to plan for thoracentesis while in the hospital
Will need to expedite oncology evaluation. Cancer is progressing.
Assessment
-
79-year-old woman smoker, comes to the hospital complaining of progressive shortness of breath for the last 4 to 5 weeks. She recently has been diagnosed with a lung mass. Seen by Dr. Johnson in the office. Subsequently referred to cardiology for
clearance. Underwent clearance 02/18/2025. In the interim also had left upper extremity DVT and started on Eliquis in January 2025. Admitted for further evaluation.
Acute hypoxemic respiratory failure currently on 3 L.
Lung mass/mediastinal/right hilar lymphadenopathy: Suggestive of lung cancer.
CT chest 01/28/2025:Large mass likely with epicenter in the upper lobe of the right lung is seen extending from the mediastinum measuring approximately 10.4 x 7.8 x 9.0 cm with a likely small satellite nodule in the right upper lobe measuring 1.3 cm,
latter image 14 series 201. There is accompanying marked narrowing of the right upper lobe pulmonary vasculature and airways possible invasion, image 24 series 201. Extensive mediastinal and likely right hilar lymphadenopathy are noted.
There is a small right pleural effusion. Some mild pericardial thickening versus tiny pericardial effusion
Cannot rule out postobstructive pneumonia.
Chest x-ray 02/25/2025: New consolidation of the right upper lobe suggesting pneumonia. Lung mass noted as well.
Rule out postobstructive pneumonia.
Developed bronchospasm: Suspect exacerbation of COPD
Weight loss-suspect due to malignancy.
Tobacco abuse-quit prior admission-not bronchospastic on exam.
Condition present prior admission:
Hypothyroidism
Sg's thyroiditis
Left upper extremity DVT January 2025 on anticoagulation
Essential hypertension
Weight loss
Active smoker
Spirometry 01/2025: Does not suggest airflow obstruction.
Right total knee replacement 2003
Assessment and plan:
Shortness of breath likely multifactorial from progressing lung mass, cannot rule out postobstructive pneumonia as the patient has a new right upper lobe infiltrate.
Hypoxemic respiratory failure.
-
Suspected lung carcinoma-advanced age given pleural effusion, mediastinal elevation etc, weight loss.
CT of the chest with IV contrast 02/26/2025- showed large mass in the superior mediastinum, 10 extent X 10 cm. 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 Small cell carcinoma within the
differential diagnosis.
Mass causes occlusion of the central aspect of the right upper lobe bronchus and distal aspect of the right middle lobe bronchus.
Right upper lobe atelectasis.
Mass has been progressive compared to prior.
Moderate right pleural effusion and a small left pleural effusion. Moderate coronary calcifications.
-
Bronchoscopy today for tissue biopsy 2024.
Now that she has right upper lobe atelectasis also pulmonary toileting as she has respiratory secretions.
-
Moderate as right pleural effusio-suspect malignant: Will plan also for thoracentesis after bronchoscopy, prior to discharge-depending on symptoms and clinical situation. May help with her symptoms as well.
-
Restart heparin after procedure if there is no bleeding.
-
Will need to expedite oncology evaluation at some point.
-
Some of the shortness of breath possibly from acute exacerbation of COPD.
Cannot rule out postobstructive pneumonia.
Continue with broad-spectrum antibiotics-azithromycin/ceftriaxone. Recommend 7-day course of antibiotics if all cultures negative.
Monitor fever curve and leukocytosis-remains afebrile without leukocytosis.
Will check a sputum culture if patient produces phlegm. Has not been able to produce.
-
Rbfkrovijv-tikqzg-ati-clock.
Oral prednisone continue-tapering dose-continue for now.
-
Left upper extremity DVT.
Eliquis on hold-agree with heparin drip-follow PTT.
Restart heparin postprocedure.
-
Discussed with patient procedure and risk and she is agreeable to proceed.
She already had moderate risk stratification by cardiology in the outpatient setting.
-
Continue with supplemental O2- currently on 3L.
Incentive spirometry encouraged.
-
Smoking cessation highly recommended. Patient quit smoking prior admission.
-
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
Watch for aspiration.
-
Prognosis is guarded.
Will follow

Data reviewed:
CT chest 01/28/2025:
Large mass likely with epicenter in the medial right upper lobe extending to the hilum, highly suspicious for malignancy. Malignant mediastinal and right hilar lymphadenopathies as well as small right upper lobe satellite lesion suspicious for
malignancy.
Mild pericardial thickening and tiny pericardial effusion
Left adrenal gland thickening.
Small right pleural effusion.
Subjective Data
-
Date of Service:
Date of Service: February 27, 2025
Chief Complaint: Pulmonary Follow Up (Lung mass/pleural effusion)
Subjective:
Continues to report shortness of breath
Intermittent coughing without hemoptysis
Denies chest discomfort
N.p.o. for bronchoscopy today
Review of Systems
Cardiopulmonary: Dyspnea, Dyspnea on Exertion and Cough
Objective Data
Data Reviewed
Vital Signs / I&O / Oxygen:
Vital Signs
Temp Pulse Resp BP Pulse Ox
97.9 F 87 16 134/80 97
02/27/25 08:10 02/27/25 08:10 02/27/25 08:10 02/27/25 08:10 02/27/25 08:10
Intake and Output
02/26/25 02/27/25 02/28/25
06:59 06:59 06:59
Intake Total 960 / 960 780 / 780
Balance 960 / 960 780 / 780
SaO2 97
Nasal Cannula flow liters per 2
minute
Physical Exam
General: Comfortable
HEENT: Normocephalic
Cardiovascular: Regular Rhythm
Respiratory: Wheeze (Expiratory), Rhonchi (Mild) and Other (Decreased breath sounds right base)
GI: Soft
Neurology: Awake, Alert, Oriented and No Motor Deficits
Skin: Warm
Labs/Micro/Reports
Lab Data
02/27/25 05:24
02/25/25 13:04
Laboratory Results
02/26/25 02/26/25
13:46 21:08
APTT 62.5 H 93.4 H
--- NOTE | 2025-02-27 12:16 | CON.ONC ---
Documented by User: Logan Patrick MD, Resident 02/27/25 15:32
Consultation
-
Date Consultation Requested: 02/26/25
Date Consultation Performed: 02/27/25
Requesting Provider: Dr. Banegas
Performing Provider: Dr. Patrick; Dr. Hood
Reason for Consultation: Lung mass
Impression
Impression
#Lung mass
Progressive shortness of breath, fatigue, and NEAL accompanied by hoarseness and weight loss in setting of approximately [id number] smoking history
Chest CT (02/26/2025): large superior mediastinal mass 10.6 cm x 10.4 cm x 10.0 cm causing occlusion of the central aspect of the SVC, central aspect of RUL bronchus, and distal RML bronchus. Mass likely malignant.
Bronchoscopy with TBNA performed this morning, with findings of endobronchial RUL mass with near-total occlusion and mass effect. Encasement and narrowing of right pulmonary artery. Enlarged lymph nodes.
#LUE venous thrombosis
Last dose of Eliquis 02/24/25 evening, currently on heparin
Swollen, cool LUE without erythema, pain, or motor/sensory deficits
Affordability of Eliquis is a challenge
Plan
Plan
#Lung mass
Awaiting pathology s/p bronchoscopy
Outpatient oncology follow-up, staging imaging following pathology results
#LUE venous thrombosis
Continue heparin for now
Recommend DOAC at discharge
If DOAC is cost prohibitive, therapeutic enoxaparin is an option
Patient History
History of Present Illness
Patient is a 79-year-old female with past medical history of large mass in the RUL lung and mediastinum (01/28/2025) and left upper extremity DVT (02/07/2025) on Eliquis who presented to the [facility] ED on 02/25/2025 with progressive shortness of breath and
dyspnea on exertion. Patient is currently being treated for suspected postobstructive pneumonia and COPD exacerbation. Patient has been having progressive shortness of breath and NEAL accompanied by cough, fatigue, and anorexia for 4 to 5 weeks.
Patient has had approximately 35 pound weight loss since May 2024. Patient also endorses hoarseness for the past week. This is the third time the patient has presented to the ED in the past several weeks. At the first ED visit for shortness
of breath on 01/27, patient was found to have an RUL/mediastinal mass concerning for malignancy. Patient was advised to follow-up for biopsy. Patient intended to schedule the biopsy, but it has not yet happened. In mid January, patient reported
to the ED for LUE swelling, and she was diagnosed with nonocclusive thrombus in the left axillary, cephalic, and basilic veins. Patient was started on Eliquis. Patient states she can no longer stay on Eliquis because it is too expensive. Up to
this point, she has managed to stay on it by obtaining samples. She wants to find an alternative anticoagulant. Over the past few weeks on anticoagulation, patient states LUE redness and warmth have resolved, though arm is still swollen. No
changes in strength or sensation of LUE. Patient denies chest pain, headache, seizures, cough, hemoptysis, neck or upper chest swelling, vision changes, N/V/D, fever, or chills. Prior to LUE thrombosis last month, patient has never had clotting
issues. Patient does state she had an episode of rectal bleeding of unknown etiology in 2008, which necessitated 2 blood transfusions. At that time, she was told she needed 'warm blood' transfusions to prevent clotting. Son has a history of blood
clotting in his legs, but patient attributes this to 'his father's side.' Denies personal or family history of malignancy. Patient has smoked half pack per day since age 21 (approximately 30 pack years).
Past-Medical/Surgical History
Left upper extremity DVT
Sg's thyroiditis
Patient Medication
�Medication �Instructions �Recorded �Confirmed �Last Taken �Type
apixaban 5 mg tablet (Eliquis) 5 mg PO BID #60 tabs 02/07/25 02/25/25 02/24/25 Rx
levothyroxine 137 mcg tablet 137 mcg PO MOTUWETHFRSA Thyroid 02/25/25 02/25/25 02/24/25 History
(Synthroid)
simvastatin 20 mg tablet (Zocor) 20 mg PO QPM cholesterol 02/25/25 02/25/25 02/24/25 History
Active Medications
Generic Name Dose Route Start Last Admin
Trade Name Freq PRN Reason Stop Dose Admin
Acetaminophen 650 mg 02/25/25 16:12 02/27/25 06:40
Acetaminophen 325 Mg Tablet PO 03/25/25 16:11 650 mg
Q6HPRN PRN Administration
mild pain/ fever>100.5F
Albuterol/Ipratropium 3 ml 02/26/25 09:45 02/27/25 10:59
Ipratropium 0.5/Albuterol 3 Mg (3 Ml Ampul) INH 3 ml
R QID HUMZA Administration
Protocol
Albuterol/Ipratropium 3 ml 02/26/25 09:42
Ipratropium 0.5/Albuterol 3 Mg (3 Ml Ampul) INH
R Q4HPRN PRN
SOB, wheezing
Protocol
Atorvastatin Calcium 20 mg 02/26/25 18:00 02/26/25 18:07
Atorvastatin (Lipitor) 20 Mg Tablet PO 03/26/25 17:59 20 mg
QPM HUMZA Administration
Azithromycin 500 mg 02/25/25 16:12 02/26/25 08:33
Azithromycin 250 Mg Tablet PO 500 mg
DAILY HUMZA Administration
Ceftriaxone Sodium 1,000 mg 02/25/25 20:00 02/26/25 21:29
Ceftriaxone 1000 Mg / 10 Ml Vial IV 1,000 mg
Q24H HUMZA Administration
Guaifenesin 600 mg 02/25/25 20:00 02/26/25 21:29
Guaifenesin 600 Mg Extended Release Tablet PO 03/25/25 19:59 600 mg
Q12 HUMZA Administration
Levothyroxine Sodium 137 mcg 02/26/25 06:00 02/27/25 06:17
Levothyroxine 137 Mcg Tablet PO 03/26/25 05:59 137 mcg
MedSa@0600 HUMZA Administration
Prednisone 40 mg 02/26/25 08:00 02/26/25 08:33
Prednisone 20 Mg Tablet PO 03/26/25 07:59 40 mg
DAILY HUMZA Administration
Sodium Chloride 0 flush 02/25/25 17:00
Sodium Chloride 0.9% (Flush) Syringe IV 03/25/25 16:59
PER PROTOCOL HUMZA
Sterile Water 10 ml 02/25/25 20:00 02/26/25 21:29
Sterile Water For Injection 10 Ml Vial IV 03/25/25 19:59 10 ml
Q24H HUMZA Administration
Review of Systems
-
History Source: Patient
Constitutional: Reports Weight Loss (35 pounds since May), Fatigue and Weakness; Denies Fever or Chills
EENT: Reports Other (Hoarseness 1 week); Denies Blurry Vision or Decreased Vision
Respiratory: Reports Trouble Breathing; Denies Cough or Hemoptysis
Cardiac: Reports Other (No facial or upper chest redness or swelling); Denies Chest Pain
GI: Denies Abdominal Pain, Nausea, Vomiting or Diarrhea
Neuro: Denies Headache, Numbness or Seizures
Hematologic/Lymphatic: Reports Blood Clots (LUE venous and mid-January 2025)
Physical Exam
-
General: Conversant and Other (Appears mildly uncomfortable); Negative Pain, Fever or Chills
HEENT: Other (No head or upper chest swelling, erythema, or vessel engorgement noted); Negative Jaundice
Cardiology: S1 and S2
Pulmonary: Clear and Other (No stridor noted); Negative Wheezes, Rales or Rhonchi
GI: Soft and Other (Nontender)
Musculoskeletal: Edema. Left Upper Extrem and Other (LUE cooler to touch than RUE; motor, and sensation intact)
Extremities: Pulses Present; Negative Phlebitic Signs
Neurology: Non Focal
Skin: Dry
Psych: Intact Judgement/Insight
Labs
Lab Results
WBC 10.5 10^3/uL (4.8-10.8) 02/27/25 05:24
RBC 3.90 10^6/uL (4.20-5.40) L 02/27/25 05:24
Hgb 11.8 g/dL (12.0-16.0) L 02/27/25 05:24
Hct 36.8 % (37.0-47.0) L 02/27/25 05:24
MCV 94.4 fL (81.0-99.0) 02/27/25 05:24
MCH 30.3 pg (27.0-31.0) 02/27/25 05:24
MCHC 32.1 g/dL (33.0-37.0) L 02/27/25 05:24
RDW 14.7 % (11.5-14.5) H 02/27/25 05:24
Plt Count 313 10^3/uL (130-400) 02/27/25 05:24
MPV 8.7 fL (7.4-10.4) 02/27/25 05:24
Abs Immat Gran (auto) 0.0 10^3/uL (0-0.05) 02/25/25 12:09
Absolute Neuts (auto) 10.6 10^3/uL (1.4-6.5) H 02/25/25 12:09
Absolute Lymphs (auto) 0.5 10^3/uL (1.2-3.4) L 02/25/25 12:09
Absolute Monos (auto) 0.4 10^3/uL (0.1-0.6) 02/25/25 12:09
Absolute Eos (auto) 0.0 10^3/uL (0-0.7) 02/25/25 12:09
Absolute Basos (auto) 0.1 10^3/uL (0-0.2) 02/25/25 12:09
Immature Gran % 0.3 % (0-0.5) 02/25/25 12:09
Neutrophils % 91.8 % (42.2-75.2) H 02/25/25 12:09
Lymphocytes % 4.3 % (20.5-51.1) L 02/25/25 12:09
Monocytes % 3.2 % (1.7-9.3) 02/25/25 12:09
Eosinophils % 0.0 % (0-6) 02/25/25 12:09
Basophils % 0.4 % (0-2) 02/25/25 12:09
Creatinine 0.7 mg/dL (0.6-1.0) 02/25/25 13:04
Vital Signs
Vital Signs
Temp Pulse Resp BP Pulse Ox
97.3 F 98 30 138/83 98
02/27/25 10:50 02/27/25 11:30 02/27/25 11:15 02/27/25 11:30 02/27/25 11:30

Documented by User: Fahad Hood MD 02/27/25 15:43
Plan
Plan
#Lung mass
Awaiting pathology s/p bronchoscopy
Outpatient oncology follow-up, staging imaging following pathology results
#LUE venous thrombosis
Continue heparin for now
Recommend DOAC at discharge
If DOAC is cost prohibitive, therapeutic enoxaparin is an option
Hematology/ Oncology Addendum:
Patient seen and evalutaed and agree w/ resident note and plan
-RUL lung mass - s/p bronch w/ biopsy - await pathology
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
-DOAC on discharge
Will continue to follow with you.
--- NOTE | 2025-02-27 12:19 | PTCARENOTE ---
Pt returned from bronchoscopy procedure, VSS.
[2025-02-27] MEDS: MUCINEX 600 MG PO ×2 (12:20→21:10)
[2025-02-27] MEDS: DELTASONE 40 MG PO (12:20)
[2025-02-27] MEDS: ZITHROMAX 500 MG PO (12:20)
--- NOTE | 2025-02-27 13:06 | W.PN.HOSP.TC ---
Today's Communication/Plan
-
Elevate left upper extremity
Hold heparin
Oncology consult
Resume diet
Assessment / Plan
Assessment / Plan
Gen-AAOx3, NAD
HEENT-NC, AT, anicteric, clear oral mm
Neck-supple
CV-reg, no M, +S1/S2
Lungs-bilateral expiratory wheezing, rhonchi
Abd-soft, NT, ND
Ext-no edema
Musculoskeletal-no cyanosis, clubbing
Skin-warm and dry
Neuro-grossly non-focal
Psych-calm, cooperative
Acute hypoxic respiratory failure -suspect multifactorial etiology including lung mass, postobstructive pneumonia, possible underlying COPD. Pulmonary embolism possible but seems less likely as she is already on anticoagulation.
Oxygenation stable on 2 L nasal cannula. Not on oxygen at home.
Acute COPD exacerbation - presentation with shortness of breath, cough, wheezing. DuoNebs [id number] and as needed. Continue steroids, Mucinex.
Presumed community-acquired pneumonia -possibly postobstructive pneumonia in the setting of suspected lung cancer. Continue ceftriaxone, azithromycin. Check urinary antigens.
Right-sided lung mass -highly suspicious for primary lung cancer. Oncology consulted.
Underwent bronchoscopy today with biopsy, path report pending.
Found to have right upper lobe with endobronchial tumor and near-total occlusion with mass effect. Apical posterior segment 100% occluded, anterior segment 80% occluded. Very friable tumor, bleeding on touching.
Right middle lobe opening narrowed with thickening of stewart suggestive of external compression. Endobronchial brushings were obtained and sent for cytology. Bronchial alveolar lavage of RUL performed.
Recent left upper extremity DVT -nonocclusive on ultrasound 02/07/2025.
Pulmonary recommends holding IV heparin for 24 hours after bronchoscopy.
Patient cannot afford to take further Eliquis given its high cost. She has been using samples provided to her from various physicians. She would prefer to switch to warfarin on discharge, or something affordable.
Keep left upper extremity elevated on pillows, discussed with nursing.
Hypothyroidism -on levothyroxine 137 mcg daily. Dose was reduced to 6 days a week due to elevated thyroid hormone levels.
TSH 1.38 on 02/07/2025.
Essential hypertension -previously on ramipril and hydrochlorothiazide but discontinued due to hypotension. Currently not on antihypertensives.
Hyperlipidemia -she is on simvastatin.
Tobacco dependence -smoking cessation advised.
Full code
Anticipated Discharge: > 48 hours
Subjective/Interval History
-
Date of Service: February 27, 2025
Patient seen and examined, does have slight worsening of left arm edema.
Objective Data
-
Labs:
Laboratory Results
02/27/25
05:24
WBC 10.5
Hgb 11.8 L
Hct 36.8 L
Plt Count 313
Vital Signs:
Vital Signs
Temp Pulse Resp BP Pulse Ox
98.2 F 95 16 129/80 98
02/27/25 12:20 02/27/25 12:20 02/27/25 12:20 02/27/25 12:20 02/27/25 12:20
I&O
02/26/25 02/27/25 02/28/25
06:59 06:59 06:59
Intake Total 960 / 960 780 / 780
Balance 960 / 960 780 / 780
Review of Systems
-
History Source: Patient
All other systems: Reviewed and negative
[2025-02-27] MEDS: LIPITOR 20 MG PO (17:30)
[2025-02-27] MEDS: STERILE WATER FOR INJECTION 10 ML IV (21:10)
[2025-02-27] MEDS: ROCEPHIN 1000 MG IV (21:10)
[2025-02-28 05:42] VITALS: BMI 26.0
[2025-02-28] MEDS: SYNTHROID 137 MCG PO (05:47)
--- NOTE | 2025-02-28 07:32 | PTCARENOTE ---
Pt requested enriched pudding and ensure is added to diet order per discussion with diesel motor mechanic. Pt c/o increased facial and neck swelling without any difficulty swallowing or breathing. Pt stated, 'I do not recognize myself' and tearful. MD made
aware.
[2025-02-28] MEDS: DUONEB 3 ML INH ×3 (07:36→15:22)
[2025-02-28 08:01] VITALS: BP 143/82
--- NOTE | 2025-02-28 08:37 | PTCARENOTE ---
Neck palpated and feels full. LUE swelling increased to +3 to +4 edema. MD made aware.
[2025-02-28] MEDS: MUCINEX 600 MG PO ×2 (08:41→19:34)
[2025-02-28] MEDS: ZITHROMAX 500 MG PO (08:41)
[2025-02-28] MEDS: DELTASONE 40 MG PO (08:41)
--- NOTE | 2025-02-28 09:40 | CM ---
Chart reviewed and emmy is currently requiring 4 liters of oxygen 96%, patient does not have oxygen at home, piano case and bench assembler was asked to check on cost of Eliquis, Xarelto and Warfarin and Eliquis is $583, Xarelto 581.80, and Warfarin zero copay. Case
scientific affairs manager met with patient and reviewed cost of medication, per patient in the past she had relied on samples from her cardiac office however they no longer can provide samples and patient has decided to ask for Warfarin at discharge.
Plan; Home at discharge.
--- NOTE | 2025-02-28 11:07 | W.PN.HOSP.TC ---
Addendum entered and electronically signed by Chuy Banegas DO 02/28/25 15:05:
spoke with [facility] twice.
Waiting for call back to determine if they can accept this patient in transfer.
Original Note:
Today's Communication/Plan
-
Await path report
Resume IV heparin
Assessment / Plan
Assessment / Plan
Gen-AAOx3, NAD
HEENT-NC, AT, anicteric, clear oral mm, mild facial and neck swelling
Neck-supple
CV-reg, no M, +S1/S2
Lungs-bilateral expiratory wheezing, rhonchi
Abd-soft, NT, ND
Ext-diffuse left upper extremity edema
Musculoskeletal-no cyanosis, clubbing
Skin-warm and dry
Neuro-grossly non-focal
Psych-calm, cooperative
Acute hypoxic respiratory failure -suspect multifactorial etiology including lung mass, postobstructive pneumonia, possible underlying COPD. Pulmonary embolism possible but seems less likely as she is already on anticoagulation.
Oxygenation stable on 3 L nasal cannula. Not on oxygen at home.
SVC syndrome -onset of symptoms overnight with facial and neck swelling noted by patient. Suspect related to underlying lung cancer. On CT scan the mass causes occlusion of the central aspect of the SVC and multiple resulting chest wall
collaterals were noted. Will discuss with oncology and pulmonary. Still waiting for path report from bronchoscopy.
Okay to resume IV heparin, discussed with pulmonary.
Acute COPD exacerbation - presentation with shortness of breath, cough, wheezing. DuoNebs [id number] and as needed. Continue steroids, Mucinex.
Presumed community-acquired pneumonia -possibly postobstructive pneumonia in the setting of suspected lung cancer. Continue ceftriaxone, azithromycin. Check urinary antigens.
Right-sided lung mass -highly suspicious for primary lung cancer. Oncology consulted.
Underwent bronchoscopy today with biopsy, path report pending.
Found to have right upper lobe with endobronchial tumor and near-total occlusion with mass effect. Apical posterior segment 100% occluded, anterior segment 80% occluded. Very friable tumor, bleeding on touching.
Right middle lobe opening narrowed with thickening of stewart suggestive of external compression. Endobronchial brushings were obtained and sent for cytology. Bronchial alveolar lavage of RUL performed.
Recent left upper extremity DVT -nonocclusive on ultrasound 02/07/2025. Patient states her left arm edema has worsened. Recommend keeping it elevated.
Okay to resume IV heparin today, discussed with pulmonary.
Patient cannot afford to take further Eliquis given its high cost. She has been using samples provided to her from various physicians. She would prefer to switch to warfarin on discharge, or something affordable. Social work mentioned that
Xarelto cost $581 monthly, Eliquis $583. Warfarin has $0 co-pay.
Hypothyroidism -on levothyroxine 137 mcg daily. Dose was reduced to 6 days a week due to elevated thyroid hormone levels.
TSH 1.38 on 02/07/2025.
Essential hypertension -previously on ramipril and hydrochlorothiazide but discontinued due to hypotension. Currently not on antihypertensives.
Hyperlipidemia -she is on simvastatin.
Tobacco dependence -smoking cessation advised.
Full code
Anticipated Discharge: > 48 hours
Subjective/Interval History
-
Date of Service: February 28, 2025
Patient seen and examined. Complaining of swelling of face and neck, left upper extremity. Denies change in breathing.
Objective Data
-
Labs:
Laboratory Results
02/28/25
10:31
WBC Pending
Hgb Pending
Hct Pending
Plt Count Pending
APTT Pending
Vital Signs:
Vital Signs
Temp Pulse Resp BP Pulse Ox
97.9 F 83 16 143/82 96
02/28/25 08:01 02/28/25 08:01 02/28/25 08:01 02/28/25 08:01 02/28/25 08:01
I&O
10/08/1902/28/25 03/01/25
06:59 06:59 06:59
Intake Total 780 / 780 1080 / 1080 480 / 480
Balance 780 / 780 1080 / 1080 480 / 480
Review of Systems
-
History Source: Patient
All other systems: Reviewed and negative
--- NOTE | 2025-02-28 11:27 | W.PN.PUL3 ---
Today's Communication / Plan
-
- Resume Heparin
- Lasix 20 mg IV x 1
- CXR in AM
- Monitor closely in IMU
- Vascular surgery evaluation
Assessment
-
79-year-old woman smoker, comes to the hospital complaining of progressive shortness of breath for the last 4 to 5 weeks. She recently has been diagnosed with a lung mass. Seen by Dr. Johnson in the office. Subsequently referred to cardiology for
clearance. Underwent clearance 02/18/2025. In the interim also had left upper extremity DVT and started on Eliquis in January 2025. Admitted for further evaluation.
Acute hypoxemic respiratory failure currently on 3 L.
Lung mass/mediastinal/right hilar lymphadenopathy: Suggestive of lung cancer.
CT chest 01/28/2025:Large mass likely with epicenter in the upper lobe of the right lung is seen extending from the mediastinum measuring approximately 10.4 x 7.8 x 9.0 cm with a likely small satellite nodule in the right upper lobe measuring 1.3 cm,
latter image 14 series 201. There is accompanying marked narrowing of the right upper lobe pulmonary vasculature and airways possible invasion, image 24 series 201. Extensive mediastinal and likely right hilar lymphadenopathy are noted.
There is a small right pleural effusion. Some mild pericardial thickening versus tiny pericardial effusion
Cannot rule out postobstructive pneumonia.
Chest x-ray 02/25/2025: New consolidation of the right upper lobe suggesting pneumonia. Lung mass noted as well.
Rule out postobstructive pneumonia.
Developed bronchospasm: Suspect exacerbation of COPD
Weight loss-suspect due to malignancy.
Tobacco abuse-quit prior admission-not bronchospastic on exam.
Condition present prior admission:
Hypothyroidism
Sg's thyroiditis
Left upper extremity DVT January 2025 on anticoagulation
Essential hypertension
Weight loss
Active smoker
Spirometry 01/2025: Does not suggest airflow obstruction.
Right total knee replacement 2003
Assessment and plan:
#1. Newly detected Lung mass
- Suspicious for malignancy.
- s/p Bronchoscopy and EBUS-TBNA station 4R and 7. Await final pathology. DAVID concerning for malignancy
- RUL nearly completely occluded with endobronchial mass. Apical and posterior segment 100% and Anterio segment 80% occluded with friable mass
- RML also narrowed with external compression, patent RLL
#2. Dyspnea, multifactorial
- RUL and RM volume loss, post obstructive Pneumonia and mass effect with Right Pulm artery and SVC encasement by tumor, also suspect underlying COPD and newly detected right sided pleural effusion
- Continue Antibiotics, await BAL c/s.
#3. Moderate Right pleural effusion.
- Suspect malignant
- Await Tissue pathology
- F/u CXR in AM
- Hold off Thoracentesis for now
#4. SVC syndrome
- Compression related to tumor
- Will discuss with Vascular surgery/Oncology. ?role for stent/radiation
- Resume Heparin infusion, was held for 24 hrs post bronchoscopy procedure due to friability of tumor with bleeding
- PRN Diuresis
- Low threshold to move to ICU
- Monitor in IMU
#5. Left upper extremity DVT.
- Restart Heparin
#6. Suspect COPD
- On Duoneb and short course of Prednisone
Smoking cessation highly recommended. Patient quit smoking prior admission.
Prognosis is guarded.
Will follow

Data reviewed:
CT chest 01/28/2025:
Large mass likely with epicenter in the medial right upper lobe extending to the hilum, highly suspicious for malignancy. Malignant mediastinal and right hilar lymphadenopathies as well as small right upper lobe satellite lesion suspicious for
malignancy.
Mild pericardial thickening and tiny pericardial effusion
Left adrenal gland thickening.
Small right pleural effusion.
Subjective Data
-
Date of Service:
Date of Service: February 28, 2025
Chief Complaint: Pulmonary Follow Up (Lung mass/pleural effusion)
Subjective:
Comfortably sitting in bed. Reports increased facial swelling
Review of Systems
Genitourinary: Other (No new symptoms reported except as stated in subjective )
Objective Data
Data Reviewed
Vital Signs / I&O / Oxygen:
Vital Signs
Temp Pulse Resp BP Pulse Ox
97.9 F 101 18 143/82 92
02/28/25 08:01 02/28/25 11:13 02/28/25 11:13 02/28/25 08:01 02/28/25 11:13
Intake and Output
02/27/25 02/28/25 03/01/25
06:59 06:59 06:59
Intake Total 780 / 780 1080 / 1080 480 / 480
Balance 780 / 780 1080 / 1080 480 / 480
SaO2 92
Nasal Cannula flow liters per 3
minute
Physical Exam
General: Comfortable
HEENT: Normocephalic
Cardiovascular: Regular Rhythm
Respiratory: Wheeze (Expiratory), Rhonchi (Mild) and Other (Decreased breath sounds right base)
GI: Soft
Neurology: Awake, Alert, Oriented and No Motor Deficits
Skin: Warm
Labs/Micro/Reports
Lab Data
02/25/25 13:04
Microbiology
02/27/25 10:35 Bronch Right Upper Lobe Respiratory Culture - Preliminary
Usual Respiratory Keisha
02/27/25 10:35 Bronch Right Upper Lobe Gram Stain - Preliminary
[2025-02-28 11:29] LABS: Hematocrit 35.2 % (37.0-47.0); Hemoglobin 11.5 g/dL (12.0-16.0); Mean Corp Hgb Conc. 32.7 g/dL (33.0-37.0); Mean Corpuscular Volume 91.4 fL (81.0-99.0); Platelet Count 242 10^3/uL (130-400); Red Cell Dist. Width 14.9 % (11.5-14.5)
[2025-02-28 11:39] LABS: APTT 23.4 Sec (23.4-35.0)
[2025-02-28] MEDS: LASIX 20 MG IV (11:50)
[2025-02-28] MEDS: HEPARIN 25000 UNITS/250 ML IV (11:50)
--- NOTE | 2025-02-28 12:24 | PTCARENOTE ---
Report provided to IMU RN.
--- NOTE | 2025-02-28 13:50 | PTCARENOTE ---
Received pt from 3W in wheelchair. Able to ambulate w/ assist x1 to bed. NEAL, sating 90% on 3L. RR 30's, labored, oxygen increased to 4L. Diminished throughout R side, scattered coarse throughout, moist productive cough occasionally. L UE +4 edema,
elevated on pillows, R +2 edema noted no redness or pain, appears to be IV heparin infiltration, VAT notified. Dr Banegas notified. SR on monitor hr 90's. Will continue to monitor closely. Pt talkative, pleasant and cooperative.
[2025-02-28 14:00] VITALS: BP 132/89
--- NOTE | 2025-02-28 14:37 | W.PN.ONC2 ---
Today's Communication / Plan
-
- worsening SVC syndrome.
- transfer to tertiary center to expedite intervention on mass/vascular obstruction.
- continue heparin gtt for now.
Impression
Impression
#Lung mass
Progressive shortness of breath, fatigue, and NEAL accompanied by hoarseness and weight loss in setting of approximately [id number] smoking history
Chest CT (02/26/2025): large superior mediastinal mass 10.6 cm x 10.4 cm x 10.0 cm causing occlusion of the central aspect of the SVC, central aspect of RUL bronchus, and distal RML bronchus. Mass likely malignant.
Bronchoscopy with TBNA performed this morning, with findings of endobronchial RUL mass with near-total occlusion and mass effect. Encasement and narrowing of right pulmonary artery. Enlarged lymph nodes.
#LUE venous thrombosis
Last dose of Eliquis 02/24/25 evening, currently on heparin
Swollen, cool LUE without erythema, pain, or motor/sensory deficits
Affordability of Eliquis is a challenge
Plan
Plan
#Lung mass w/ c/f SVC syndrome
large mass 10.4 x 10.6 x 10.0 cm causing occlusion of the central aspect of the superior vena cava, narrowing of the right main pulmonary artery, Occlusion of the right upper lobe and right middle lobe bronchi.
worsening facial swelling and discomfort over past 24 hours. c/f progressing SVC syndrome. reviewed with pulm, hospitalist. case discussed with vascular, IR to see if stentable. reached out to rad-onc who could only try to expedite outpt radiation.
due to rapid worsening of symptoms I feel quicker, in-pt intervention indicated. transfer to tertiary center for in-pt radiation vs. vascular intervention. [place] transfer center contacted.
Awaiting pathology s/p bronchoscopy 02/27.
02 needs stable. apprec pulm input.
Outpatient oncology follow-up, staging imaging following pathology results
#LUE venous thrombosis due to vascular obstruction from mass.
Continue heparin for now
Recommend DOAC at discharge
If DOAC is cost prohibitive, therapeutic enoxaparin is an option
Subjective/Objective
Chief Complaint
lung mass, LUE DVT
Subjective
pt developed worsening facial/ neck swelling over past 24 hours. LUE swelling persists however erythema resolved. She continues to have SOB with minimal exertion however comfortable at rest. Denies hemoptysis, chest pain.
Vital Signs:
Vital Signs
Temp Pulse Resp BP Pulse Ox
97.9 F 99 26 132/89 96
02/28/25 08:01 02/28/25 14:00 02/28/25 13:24 02/28/25 14:00 02/28/25 14:00
Lab Results:
Laboratory Data
WBC 11.9 10^3/uL (4.8-10.8) H 02/28/25 10:31
Hgb 11.5 g/dL (12.0-16.0) L 02/28/25 10:31
Plt Count 242 10^3/uL (130-400) D 02/28/25 10:31
APTT 23.4 Sec (23.4-35.0) 02/28/25 10:31
eGFR > 60.00 02/25/25 13:04
Physical Exam
HEENT: No Jaundice
Cardiology: Normal Sinus Rhythm
Pulmonary: Rales (left upper and mid lung ) and Other (mild respiratory distress )
Extremities: No Edema
Neuro: Non Focal
Review of Systems
Review of Systems
Constitutional: Reports Fatigue; Denies Fever
Respiratory: Reports Dyspnea and Cough
Cardiovascular: Denies Chest Pain or Palpitations
Hem/Lymphatic: Denies Easy Bruising
[2025-02-28 14:53] VITALS: BMI 26.8
--- NOTE | 2025-02-28 15:57 | PTCARENOTE ---
Report called to [facility]. George w/ [facility]. Pt to be picked up by [facility] at 6pm, to go to [facility] Room 310. Patient updated.
[2025-02-28 16:00] VITALS: BP 148/88
[2025-02-28] MEDS: LIPITOR 20 MG PO (16:35)
[2025-02-28 18:00] VITALS: BP 145/85
--- NOTE | 2025-02-28 18:15 | PTCARENOTE ---
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
[2025-02-28 18:21] LABS: APTT 32.4 Sec (23.4-35.0)
[2025-02-28] MEDS: HEPARIN 6000 UNITS IV (18:38)
[2025-02-28] MEDS: ROCEPHIN 1000 MG IV (19:35)
[2025-02-28] MEDS: STERILE WATER FOR INJECTION 10 ML IV (19:35)
--- NOTE | 2025-02-28 20:00 | PTCARENOTE ---
Report called to Karen SETH at [facility]. EMS transport scheduled for 2029.
[2025-02-28] MEDS: DUONEB INH (20:24)
--- NOTE | 2025-02-28 21:02 | PTCARENOTE ---
EMS transporting patient to [facility] at 2100. All belongings collected and sent with the patient. EMS team updated.
--- NOTE | 2025-03-03 16:43 | W.PN.UPDATE ---
Update Note
Progress Note Update
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 I discussed these results directly with Dr. Singh, medical oncology at [facility] who is currently caring for this patient at [facility] on the inpatient service. DH
pathology confirmed wtih me that pathology was faxed to Dr. Singh at [phone]. I also provided Dr. Singh with my cell number for any further quetions, concerns or collaboration on this case.
== END 2025-02-28 21:05 | disposition short-term general hospital (02) | DRG 180 ==
LOC: IMU 14:17
PROVIDERS: Internal Medicine; Physician Assistant Medical; ADMITTING PHYSICIAN Hospitalist; CONSULT PHYSICIAN Internal Medicine Critical Care Medicine; EMERGENCY PHYSICIAN Emergency Medicine; FAMILY PHYSICIAN Internal Medicine; OTHER PHYSICIAN Internal Medicine Hematology & Oncology
PROC: 0B9C8ZX Drainage of Right Upper Lung Lobe, Via Natural or Artificial Opening Endoscopic, Diagnostic (ICD-10-PCS; 2025-02-27)
PROC: 0BDC8ZX Extraction of Right Upper Lung Lobe, Via Natural or Artificial Opening Endoscopic, Diagnostic (ICD-10-PCS; 2025-02-27)
DX: C34.90 Malignant neoplasm of unspecified part of unspecified bronchus or lung (principal); J18.9 Pneumonia, unspecified organism; J96.01 Acute respiratory failure with hypoxia; J44.0 Chronic obstructive pulmonary disease with (acute) lower respiratory infection; I87.1 Compression of vein; J44.1 Chronic obstructive pulmonary disease with (acute) exacerbation; F17.200 Nicotine dependence, unspecified, uncomplicated; Z11.52 Encounter for screening for COVID-19; Z60.2 Problems related to living alone; I10 Essential (primary) hypertension; E78.5 Hyperlipidemia, unspecified; E06.3 Autoimmune thyroiditis; Z79.890 Hormone replacement therapy; Z79.01 Long term (current) use of anticoagulants; Z71.6 Tobacco abuse counseling
CPT/HCPCS: 71045; 71260; 80053; 82805; 83880; 84484; 85025; 85027; 85730; 87015; 87070; 87102; 87116; 87205; 87811; 88112; 88173; 88305; 88341; 88342; 93005; 94640; 96374; 96375; 97163; 97167; 99285; 99406; Q9967

== ENCOUNTER → 2025-03-27 12:17 | Outpatient (REF) | payer OTHER, SELFPAY ==
[2025-03-27 13:08] VITALS: BP 113/75; BP_SYST 100
[2025-03-27] MEDS: ANCEF 10 IV (13:16)
[2025-03-27 14:25] VITALS: BP 99/56; BP_SYST 84
== END ==
LOC: RADI 12:17
PROVIDERS: ATTENDING PHYSICIAN Internal Medicine Hematology & Oncology; FAMILY PHYSICIAN Internal Medicine
DX: C34.11 Malignant neoplasm of upper lobe, right bronchus or lung (principal); I87.1 Compression of vein
CPT/HCPCS: 36561; 76937; 77001; 99152; C1788

== ENCOUNTER → 2025-04-06 14:13 | Outpatient (REF) | payer OTHER, SELFPAY ==
[2025-04-06 14:27] LABS: Hematocrit 35.7 % (37.0-47.0); Hemoglobin 11.3 g/dL (12.0-16.0); Mean Corp Hgb Conc. 31.7 g/dL (33.0-37.0); Mean Corpuscular Volume 97.3 fL (81.0-99.0); Platelet Count 352 10^3/uL (130-400); Red Cell Dist. Width 17.4 % (11.5-14.5)
[2025-04-06 15:30] LABS: ALT (SGPT) 10 U/L (0-35); AST (SGOT) 18 U/L (14-36); Alkaline Phosphatase 77 U/L (38-126); Carbon Dioxide 31 mmol/L (22-30); Glucose 105 mg/dl (70-99); eGFR > 60.00
[2025-04-06 15:40] LABS: Albumin 4.2 g/dl (3.5-5.0); Blood Urea Nitrogen 14 mg/dl (7-17); Calcium 9.9 mg/dl (8.4-10.2); Chloride 100 mmol/L (98-107); Magnesium 2.2 mg/dl (1.6-2.3); Potassium 5.1 mmol/L (3.5-5.1); Sodium 135 mmol/L (135-145); Total Protein 7.6 g/dl (6.3-8.2)
== END ==
LOC: OIDL 14:13
PROVIDERS: ATTENDING PHYSICIAN Internal Medicine Hematology & Oncology; FAMILY PHYSICIAN Internal Medicine
DX: C34.11 Malignant neoplasm of upper lobe, right bronchus or lung (principal); Z72.0 Tobacco use; R63.4 Abnormal weight loss; R64 Cachexia; G89.3 Neoplasm related pain (acute) (chronic); I87.1 Compression of vein
CPT/HCPCS: 36415; 80053; 83735; 85025

== ENCOUNTER 2025-04-07 14:36 | Inpatient (IN) | payer OTHER, SELFPAY ==
[2025-04-07] VITALS (14 sets, daily range): BP systolic 75–120; BP diastolic 47–68; BMI 24.6; BMI 24.7
--- NOTE | 2025-04-07 10:10 | ED.GENMED ---
History of Present Illness
General
Chief Complaint: Bowel Problem
Time Seen by Provider: 04/07/25 09:37
History of Present Illness
History of Present Illness:
79-year-old woman with history of lung cancer currently on chemo presenting to the emergency department constipation. Patient states that she is on her second round of chemo day 2. She went to [facility] when she said that she was
feeling generally unwell and constipated for the past 4 to 5 days. No history of constipation. No history of metastasis that patient is aware of. This is a recent diagnosis. Patient was at [facility] recently where she did have pleural effusions
requiring chest tubes and also had a pneumothorax. She was discharged on oxygen. She does state that there was concern for SVC syndrome when patient was at [place] but once she arrived at [facility] there was no stenting or anticoagulation needed.
She does state that she was on Lasix which did help with the swelling as well. She denies any chest pain. No new shortness of breath. No nausea vomiting. Mild abdominal pain.
Past History
Past History
ED Past Medical History: Cancer, HTN and Hypothyroidism
ED Past Surgical History: Orthopedic and Tonsilectomy
Social History
Tobacco: Smoker (1/2 ppd x 60 years)
Alcohol: Occasional
Drug: None
Personal:
Living: alone
Phy Exam
Physical Exam
Physical Exam:
GENERAL: Appears chronically ill
HEENT: normocephalic, extraocular movements intact, dry oral mucosa
NECK: normal inspection
RESPIRATORY: no respiratory distress, clear to auscultation bilaterally
CARDIOVASCULAR: regular rate and rhythm
ABDOMEN/: soft, non-distended, non-tender to palpation, no rebound or guarding
EXTREMITIES: non-tender, no edema/swelling
NEUROLOGIC: awake and alert, moves all extremities
SKIN: warm
Course
Orders/Labs/Results
Orders:
Orders
04/07/25 10:09
CT Abd/pelvis W Iv Cont Urgent
Comment:
Reason For Exam: constipation, hxof lung cancer
CT Chest PE Study Urgent
Comment:
Reason For Exam: eval SVC syndrome, PE
Urinalysis Reflex To Culture Urgent
04/07/25 10:10
Lactated Ringers [Lr] 500 ml IV BOLUS
04/07/25 10:25
COVID-19 Antigen Urgent
Source: Nasal Swab
Calcium, Ionized [Ionized Calcium] Urgent
Complete Blood Count/With Diff Urgent
Comprehensive Metabolic Panel Urgent
Thyroid profile [TSH Reflex To Free T4] Urgent
Influenza A+B Rapid Molecular Urgent
PRUDENCE Source: Nasal Swab
Specimen Description:
04/07/25 11:36
Piperacillin/Tazo 4.5 Gram [Zosyn] 4.5 gram in 100 ml IV NOW
04/07/25 11:38
Lactated Ringers [Lr] 500 ml IV BOLUS
04/07/25 11:44
Vancomycin [Vancocin] 2,000 mg 0.9% Sodium Chloride 500 ml [Nss] 500 ml IV NOW
04/07/25 12:35
Lactic Acid Urgent
Blood Culture Q30M
PRUDENCE Source: Blood/Venous
Specimen Description:
Blood Culture Q30M
PRUDENCE Source: Blood/Venous
Specimen Description:
Abnormal Lab Results
04/07/25
10:25
WBC 21.6 H 10^3/uL
(4.8-10.8)
RBC 3.28 L 10^6/uL
(4.20-5.40)
Hgb 10.2 L g/dL
(12.0-16.0)
Hct 31.7 L %
(37.0-47.0)
MCH 31.1 H pg
(27.0-31.0)
MCHC 32.2 L g/dL
(33.0-37.0)
RDW 17.9 H %
(11.5-14.5)
Abs Immat Gran (auto) 0.1 H 10^3/uL
(0-0.05)
Absolute Neuts (auto) 20.1 H 10^3/uL
(1.4-6.5)
Absolute Lymphs (auto) 0.5 L 10^3/uL
(1.2-3.4)
Absolute Monos (auto) 0.8 H 10^3/uL
(0.1-0.6)
Neutrophils % 93.2 H %
(42.2-75.2)
Lymphocytes % 2.5 L %
(20.5-51.1)
BUN 23 H mg/dl
(7-17)
Glucose 111 H mg/dl
(70-99)
04/07/25 10:25
04/07/25 10:25
Vital Signs
Initial and Last Documented VS:
Initial Vital Signs
Temp Pulse Resp BP Pulse Ox
98.1 F 104 18 82/47 98
04/07/25 09:32 04/07/25 09:32 04/07/25 09:32 04/07/25 09:32 04/07/25 09:32
Last Documented Vital Signs
Temp Pulse Resp BP Pulse Ox
98.1 F 89 16 95/57 97
04/07/25 09:32 04/07/25 11:15 04/07/25 11:15 04/07/25 11:00 04/07/25 11:15
MDM/Problems Addressed
Differential Diagnosis Includes:
Patient is a 79-year-old woman with history of lung cancer currently on chemotherapy presenting to the emergency department with constipation and feeling generally unwell. On arrival patient is afebrile. She is on her home oxygen. Her blood
pressure is 82/47. Exam is otherwise reassuring. Concern for new malignancy versus SVC syndrome versus PE versus metabolic derangement. Will check blood work EKG CT scan of both the chest and abdomen. Will give small fluid bolus as resuscitation.
Per chart review via [facility] physician Link patient is currently on Xarelto for DVTs. Her SVC syndrome did improve with chemotherapy as the mass did shrink.
*Pulse Oximetry
SaO2: 98
Nasal Cannula flow liters per minute: 1
Oxygen Mode of Delivery: Room air
Patient hypoxic: no
*Critical Care Note
Total Time (30-74mins, 75-104mins- exclusive of procedures): Not Applicable
Update Note
Update Note:
Patient does have a leukocytosis. Differential pending. She is afebrile. Will check cultures lactate. Will empirically antibiosis.
CT scan consistent with diverticulitis. CT scan of chest per my interpretation with no saddle PE. Patient has received antibiotics. Blood pressure has slowly increased. Discussed with hospitalist who excepted patient to their service.
ED Attending Note
-
Portions of this chart may have been created with voice recognition software.� Occasional wrong word or��sound alike� substitutions may have occurred due to the inherent limitations of voice recognition software.
Discharge Plan
Departure
Patient Disposition: Admit
Date of Disposition: 04/07/25
Time of Disposition: 13:09
Presentation/result/management discussed w/ accepting MD/DO: Hospitalist
Discharge Problem:
Diverticulitis
Prescriptions:
No Action
levothyroxine [Synthroid] 137 mcg Tablet
137 mcg PO MOTUWETHFRSA
simvastatin [Zocor] 20 mg Tablet
20 mg PO DAILY
ramipril 10 mg Capsule
10 mg PO DAILY
Xarelto 15 mg Tablet
15 mg PO BID
Rx Instructions:
take 15mg bid for 21 days then 20mg daily thereafter
Referrals:
Angelito Peña I. DO [Family Provider, Internal Medicine]
Interventions
Interventions:
*Risk Screen - Suicide Last Done: 04/07/25 09:32
*General Assessment Last Done: 04/07/25 09:32
*Neglect/Abuse Screening Last Done: 04/07/25 09:32
*ED- Fall Risk Assessment Last Done: 04/07/25 09:50
*ED COVID-19 Vaccine History Last Done: 04/07/25 09:50
*ED Influenza Vaccine History Last Done: 04/07/25 09:50
LD-Kbfpny-Uznedqhqhv Assessment Last Done: 04/07/25 09:52
ED- Cardiac Assessment Last Done: 04/07/25 09:52
ED- Neurological Assessment Last Done: 04/07/25 09:52
ED- Pulmonary Assessment Last Done: 04/07/25 09:52
Discharge Date and Time
Print Language: MACANESE
[2025-04-07] MEDS: LR 500 IV ×2 (10:24→12:43)
[2025-04-07 10:59] LABS: Hematocrit 31.7 % (37.0-47.0); Hemoglobin 10.2 g/dL (12.0-16.0); Mean Corp Hgb Conc. 32.2 g/dL (33.0-37.0); Mean Corpuscular Volume 96.6 fL (81.0-99.0); Platelet Count 254 10^3/uL (130-400); Red Cell Dist. Width 17.9 % (11.5-14.5)
[2025-04-07 11:02] LABS: ALT (SGPT) 14 U/L (0-35); AST (SGOT) 24 U/L (14-36); Albumin 3.6 g/dl (3.5-5.0); Alkaline Phosphatase 62 U/L (38-126); Blood Urea Nitrogen 23 mg/dl (7-17); Calcium 9.6 mg/dl (8.4-10.2); Carbon Dioxide 28 mmol/L (22-30); Chloride 100 mmol/L (98-107); Estimated Creatinine Clearance 51 ml/min; Glucose 111 mg/dl (70-99); Potassium 4.2 mmol/L (3.5-5.1); Sodium 135 mmol/L (135-145); Total Protein 6.7 g/dl (6.3-8.2); eGFR > 60.00
[2025-04-07 11:10] LABS: COVID-19 Antigen Negative (Negative)
[2025-04-07 12:11] LABS: Nucleated Red Blood Cells % 0 %
[2025-04-07] MEDS: ZOSYN 100 IV (12:42)
--- NOTE | 2025-04-07 13:18 | W.PN.UPDATE ---
Update Note
Progress Note Update
This note serves as an addendum to the H&P by gravure printing machinist LAURA�
Chary Tino
�
HPI
79M current smoker
HX CA lung cancer currently on chemo seen at ER:
- reports constipated for the past 4 to 5 days.
- on her second round of chemo day 2 at [facility]
- feeling generally unwell
- Recently at [facility] recently - pleural effusions requiring chest tubes and also had a pneumothorax and discharged on home O2
- concern for SVC syndrome when patient was at [facility] but once she arrived at [facility] there was no stenting or anticoagulation needed.
- was on Lasix which did help with the swelling as well.
- denies any chest pain.
- no new shortness of breath
- no nausea vomiting.
- mild abdominal pain.
PHX
1. Superior vena cava syndrome.
2. Acute hypoxic respiratory failure.
3. Large obstructing lung mass.
4. Acute chronic obstructive pulmonary disease exacerbation.
5. Possible community-acquired pneumonia.
6. Recent left arm deep vein thrombosis.
Relevant VS
Vital Signs
Temp Pulse Resp BP Pulse Ox
98.1 F 85 15 109/60 100
04/07/25 09:32 04/07/25 13:15 04/07/25 13:15 04/07/25 13:00 04/07/25 13:15
Selected Entries
04/07/25
10:30 04/07/25
11:00 04/07/25
12:37
Blood pressure 93/58 95/57 110/60
PE
Gen: chronically ill looking , not toxic looking
HEENT: anicteric
Neck: supple
Lungs: CTA
Cor: RRR S1 S2
Abdomen:� soft, non-distended, non-tender
REGISTERED MAIL CLERK:awake and alert,
MS:no edema
Relevant Data
04/06/25 04/07/25
14:24 10:25
WBC 8.7 21.6 H
Hgb 11.3 L 10.2 L
Plt Count 352 254 D
Absolute Neuts (auto) 20.1 H
Laboratory Tests
04/07/25 04/07/25
10:25 12:35
BUN 23 H
Creatinine 0.9
eGFR > 60.00
Lactic Acid 1.5
AST 24
ALT 14
Alkaline Phosphatase 62
CTC PE study
1. No evidence of pulmonary embolism.
2. There is decreased size of the right hilar/mediastinal malignancy with decreased associated local mass effect.
There is moderate/severe stenosis within the mid/lower superior vena cava although this now appears patent.
There is decreased mass effect on the right pulmonary arteries and veins as well as the right middle and upper lobe bronchi.
3. There is decreased opacification within the right upper lobe with residual nodular opacities measuring up to 2.4 cm posteriorly.
These may be due to a resolving superimposed infectious process although metastasis cannot be excluded. Recommend continued follow-up.
4. Decreased right-sided pleual effusion which is now small. Resolution the previously seen left-sided pleural effusion.
CT Abd/pelvis W Iv Cont
There is stranding along the distal descending colon which appears to be associated with the colonic diverticulum and likely represents acute diverticulitis.
Moderate colonic and rectal stool burden, likely representing constipation.
Chronic left adrenal thickening.
Relevant data�02/25/2025 - 02/28/2025
DC DX
1. Superior vena cava syndrome.
2. Acute hypoxic respiratory failure.
3. Large obstructing lung mass.
4. Acute chronic obstructive pulmonary disease exacerbation.
5. Possible community-acquired pneumonia.
6. Recent left arm deep vein thrombosis.
ASSESSMENT & PLAN
Constipation with Moderate colonic and rectal stool burden
CT suggest acute diverticulitis - uncomplicated vs stercoral colitis
- NPO except sips and IVF
- Cont. empiric Zosyn , Hold off further Vanco
- Molasses enema + PO lactulose 30 ml q3hr prn
- GI consult
Hypotension uncertain etiology: - DDX : Dehydration, sepsis
Leucocytosis - not on GCSF , LA 1.5
HX Benign HTN
- BCx
- c/w LR 100/H
- Hold Ramipril
HX multifactorial hypoxic RF on home O2 1L NC O2
multifactorial etiology including lung mass, postobstructive pneumonia, COPD
Oxygenation stable
- on 1 L nasal cannula Home O2
L UEX DVT - 02/07/25.
HX SVC syndrome
- on Xarelto for L UEX DVT
- Due to cost - cannot afford Eliquis
HX COPD
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
- Known to Dr Mendosa ( [facility])
Hypothyroidism
-on levothyroxine 137 mcg daily.
Hyperlipidemia
- on simvastatin.
Tobacco dependence
- stopped smoking on March 07
DVT Px: on DIETITIAN THERAPEUTIC Xarelto
Code: Full
IP TLM
[2025-04-07] MEDS: VANCOCIN 540 MG IV (13:21)
--- NOTE | 2025-04-07 13:24 | HPS.HSE ---
Family Physician
-
Family Physician: Angelito Peña
Chief Complaint
-
Weakness, constipation 4 to 5 days
History of Present Illness
79-year-old female who completed her first round chemotherapy 3 weeks ago for limited small cell carcinoma. She was due to start second round of chemotherapy today but felt extremely weak. She states last night she went into the bathroom was
kneeling near the toilet as she felt she needed to vomit she states she lost her balance falling onto her left arm she did not pass out or hit her head. She complains of being constipated for the past 4 to 5 days. She took MiraLAX last night
without any relief . She denies fever, chills, chest pain, palpitations, abdominal pain, vomiting, diarrhea, urinary symptoms. She states she is in the process of selling her home moving to [place] with her son April 27 she is currently living in
an extended stay hotel until her closing date April 27 where she plans to move to [place] and switch to oncology there.
. She reports earlier in February she was sent to [facility] for concerns of SVC syndrome while there she had bilateral pleural effusions requiring chest tube right lung with thoracentesis. She also had pneumothorax treatment and was discharged on home
oxygen 1 L nasal cannula. She was on Lasix that did improve swelling to her face and neck
The patient had a recent admission 02/25 - 02/28/2025 due to diagnosis of lung mass on CT chest on January 28. She had a recent left upper extremity DVT was on Eliquis however after her initial month when she went to [id number] wanted over
$500 so she was switched to Xarelto with a coupon. She was hypoxic and she had evidence of endobronchial tumor with near occlusion in total mass effect. She had swelling to head and neck concerning for superior vena cava syndrome which improved
with some low-dose Lasix. She was transferred to [facility] for stenting of her SVC and radiation. 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
years
Medical History
Past Medical History
Past Medical History: Reports Other
Additional Past Medical History:
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
former smoker half pack a day x 58 years
Left upper extremity DVT due to CVA
Superior vena cava syndrome
Bilateral pleural effusions status post right thoracentesis [facility] February 2025 chest tube
hypertension
HLD
hypothyroidism
Past Surgical History: Reports Other
Additional Past Surgical History:
Port right upper chest wall
Social History
Tobacco: Former Smoker (58-year 1 pack a day quit March 07, 2025)
Alcohol: None
Drug: None
Personal: Single
Living: Alone
Employment: Retired
Family History
Family History: Not pertinent
Allergies / Home Medications
Allergies reflects when Allergies were last updated in [facility].
Home Medications with original date entered in [facility]
Allergy/Medication List:
Allergies
Allergy/AdvReac Type Severity Reaction Status Date / Time
codeine Allergy NIGHTMARES Verified 04/07/25 09:31
metoprolol Allergy dizziness Verified 04/07/25 09:31
BASE METALS Allergy Rash Uncoded 02/07/25 16:15
Home Medications
levothyroxine 137 mcg tablet (Synthroid) 137 mcg PO MOTUWETHFRSA Thyroid 02/25/25
simvastatin 20 mg tablet (Zocor) 20 mg PO DAILY cholesterol 02/25/25
ramipril 10 mg capsule 10 mg PO DAILY Heart Disease/Condition 04/07/25
rivaroxaban 15 mg tablet (Xarelto) 15 mg PO BID Blood Clot Prevention/Tx 04/07/25
Review of Systems
-
History Source: Patient
A 12 point ROS was completed and negative except as noted: Yes
Constitutional: Reports Fatigue; Denies Fever or Chills
EENT: Denies Sore Throat or Runny Nose
Respiratory: Denies Cough or Trouble Breathing
Cardiac: Denies Chest Pain, Diaphoresis, Palpitations or Syncope
Abdomen/GI: Reports Nausea and Constipated (4 to 5 days); Denies Abdominal Pain, Vomiting or Diarrhea
: Denies Dysuria, Frequency, Flank Pain, Incontinence or Difficulty Voiding
Musculoskeletal: Denies Joint Pain or Joint Swelling
Skin: Reports Other (Ecchymosis left arm from fall); Denies Itching
Neurological: Reports Weakness (Generalized); Denies Dizzy or Headache
Endocrine: Reports No Symptoms
Hematologic/Lymphatic: Reports No Symptoms
Psych: Reports Calm
Physical Exam
Vital Signs
Vital Signs
Temp Pulse Resp BP Pulse Ox
98.1 F 85 15 109/60 100
04/07/25 09:32 04/07/25 13:15 04/07/25 13:15 04/07/25 13:00 04/07/25 13:15
Physical Exam
General: Other (Generalized weakness); No Pain, Fever or Chills
HEENT: NormoCephalic, Anicteric, Atraumatic, PERRLA, [place] Conjunctivae, No Ptosis, Neck Nontender and Other (Dry oral mucosa)
Respiratory: Clear; No Wheezes, Rales or Rhonchi
Cardiac: S1/S2 and Regular Rhythm; No Murmur, Rub, Gallop or Peripheral Edema
Breast: Deferred by me
GI: Soft, Non Tender, Non Distended, Normal Bowel Sounds and No Hepatosplenomegaly
Rectal: Deferred by Provider
Genito-urinary: Deferred by me
Musculoskeletal: No Clubbing, No Cyanosis and No Edema
Skin: Warm and Dry; No Rash
Neuro: AO x 3, No Motor Deficits, Nonfocal/grossly intact, Cranial Nerves Intact and No Sensory Deficits; No Slurred Speech, Facial Droop, Tremors or Sedated
Psych: Calm
Laboratory Results
-
04/07/25 10:25
04/07/25 10:25
Laboratory Results
Lactic Acid 1.5 mmol/L (0.7-2.0) 04/07/25 12:35
Total Bilirubin 0.9 mg/dl (0.2-1.3) 04/07/25 10:25
AST 24 U/L (14-36) 04/07/25 10:25
ALT 14 U/L (0-35) 04/07/25 10:25
Alkaline Phosphatase 62 U/L (38-126) 04/07/25 10:25
Impression/Plan
-
Impression/plan:
Admit to telemetry
#Acute diverticulitis
#Moderate colonic and rectal stool burden representing constipation post chemo
WBC 21.6 with left shift, 99.2, HR 85, respiratory rate 15, 109/60
Last bowel movement 4 to 5 days ago
-Molasses enema
- Consult GI
- IV LR 100 cc
-IV Zosyn was given single dose IV vancomycin in ER will hold further dose Vanco
- Blood cultures x 2
#Hypotension/HTN
BP 104/56
-Hold ramipril 10 mg daily
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
#History of lung mass with SVC syndrome(February 2025)-was evaluated at [facility] no stenting was done
#Former smoker 58 years 1 pack a day
#Port right upper chest wall
Follows with [facility] Dr. Bruner
CT PE study:1. No evidence of pulmonary embolism.
2. There is decreased size of the right hilar/mediastinal malignancy with decreased associated local mass effect.
There is moderate/severe stenosis within the mid/lower superior vena cava although this now appears patent. There is decreased mass effect on the right pulmonary arteries and veins as well as the
right middle and upper lobe bronchi.
3. There is decreased opacification within the right upper lobe with residual nodular opacities measuring up to 2.4 cm posteriorly.
These may be due to a resolving superimposed infectious process although metastasis cannot be excluded. Recommend continued follow-up.
4. Decreased right-sided pleural effusion which is now small. Resolution the previously seen left-sided pleural effusion.
February 2025 CT: large mass 10.4 x 10.6 x 10.0 cm causing occlusion of the central aspect of the superior vena cava,
narrowing of the right main pulmonary artery, Occlusion of the right upper lobe and right middle lobe bronchi
worsening facial swelling and discomfort over past 24 hours.
#Left upper extremity venous thrombus due to vascular obstruction from mass
-Continue Xarelto 15 mg twice daily this was switched from Eliquis due to cost for patient
Continue BROADLOOM WEAVER Xarelto 15 mg twice daily(unsure date patient was to convert to 20 mg daily)
#Anemia secondary to chemotherapy
Hemoglobin stable at 10.2
#HLD
Continue Zocor 20 mg daily
#Hypothyroidism
Continue levothyroxine 137 mcg p.o. daily except Sundays
DVT prophylaxis
Continue BROADLOOM WEAVER Xarelto 15 mg twice daily(unsure date patient was to convert to 20 mg daily)
Full code
--- NOTE | 2025-04-07 15:11 | CON.GI ---
Addendum entered and electronically signed by Orin Hills Do, MD 04/07/25 16:44:
I saw and evaluated the patient. I reviewed the resident�s note and agree with findings and plan as documented in the resident�s note.
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 She recently was started on
opioids for pain management. She has not had BM in about 6 days and has rectal pressure. She started miralax once yesterday. Denies blood in stools. She was due for 2nd round of chemo today but on hold. She sees Dr Mendosa and not sure of her
staging of disease. She is selling home with plans to move to [place] soon. Vitals stable exam chronically ill appearing. NTTP. Labs reviewed
Impression
- Opioid induced constipation
- Small cell lung cancer
- h/o SVC syndrome
- Pleural effusion
- Weakness and recent fall
Recommendation
- Milk of molasses enema x1 now
- Recommend mag citrate oral
- Miralax daily starting tomorrow
- Monitor electrolyte and add TSH
- CLD
- Advance as tolerates tomorrow
- Her last Cscope 2008
Will follow with you.
Original Note:
Consultation
-
Date/Time Consultation Requested: 04/07/25 14:18
Date/Time Consultation Performed: 04/07/25 15:00
Requesting Provider: Chary Jiménez
Performing Provider: Orin Brown
Reason for Consultation: constipation, diverticulitis
Medical History
Chief Complaint / HPI
Chief Complaint: constipation
History of Present Illness:
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
Pt reports going to her outpt appointment for chemotherapy where they were concerned for her reported constipation and low BP where they instructed her to present to the ED. She reports feeling of constipation with last BM 4-5 days ago. She tried
taking miralax yesterday with no improvement. Normal BM 1/day. Denies every feeling like this before. She reports the sensation of the stool being near the anal verge but unable to defecate. Denies fevers, chills, nausea, vomiting, reflux. She
reports her appetite has been reduced since her cancer symptoms began but denies recent changes. Denies abdominal pain, hx surgeries. Pt reports consuming lots of water regularly and no changes in recent few days since symptoms started. Denies
worsening cough, SOB.
Pt reports receiving unknown chemotherapy inpatient at [facility] for SVC syndrome. Per chart, seems like she may have received cisplatin and etoposide 03/04/25. Denies receiving immunotherapy.
Pt met with radiation oncology to discuss timing of chemotherapy, RT, and immunotherapy. Dr. Coughlin planned on discussing with Dr. Mendosa no current plans for starting RT at the moment. While at [facility], she was recommended to
receive chemoradiation.
Past Medical History
Past Medical History: Cancer (small cell lung), HTN and Hypothyroidism
Past Surgical History: Other (tnsillectomy, back surgery, knee replacement)
Social History
Tobacco: Former Smoker
Living: Alone (moving to [place] to be with son 04/27/25)
Allergies / Home Medications
Allergy/AdvReac Type Severity Reaction Status Date / Time
codeine Allergy NIGHTMARES Verified 04/07/25 09:31
metoprolol Allergy dizziness Verified 04/07/25 09:31
BASE METALS Allergy Rash Uncoded 02/07/25 16:15
�Medication �Instructions �Recorded
levothyroxine 137 mcg tablet 137 mcg PO MOTUWETHFRSA Thyroid 02/25/25
(Synthroid)
simvastatin 20 mg tablet (Zocor) 20 mg PO DAILY cholesterol 02/25/25
ramipril 10 mg capsule 10 mg PO DAILY Heart 04/07/25
Disease/Condition
rivaroxaban 15 mg tablet (Xarelto) 15 mg PO BID Blood Clot 04/07/25
Prevention/Tx
Review of Systems
-
All other systems: A 12 pt ROS was Negative except as stated above in HPI
Vital Signs
Temp Pulse Resp BP Pulse Ox
99.2 F 91 22 117/63 100
04/07/25 13:25 04/07/25 15:00 04/07/25 15:00 04/07/25 15:00 04/07/25 15:00
Physical Exam
Exam
General: No Apparent Distress and Comfortable
HEENT: Normocephalic, Anicteric and Moist Mucous Membranes
Respiratory: Non Labored Respirations
Cardiac: Regular Rhythm
GI: Soft, Non Tender and Distended (can feel stool burden upon palpation)
Musculoskeletal: No Edema
Skin: Warm and Dry
Neuro: AO x 3 and Nonfocal/Grossly Intact
Psych: Calm
Results
WBC 21.6 10^3/uL (4.8-10.8) H 04/07/25 10:25
Hgb 10.2 g/dL (12.0-16.0) L 04/07/25 10:25
Hct 31.7 % (37.0-47.0) L 04/07/25 10:25
MCV 96.6 fL (81.0-99.0) 04/07/25 10:25
Plt Count 254 10^3/uL (130-400) D 04/07/25 10:25
Absolute Neuts (auto) 20.1 10^3/uL (1.4-6.5) H 04/07/25 10:25
Sodium 135 mmol/L (135-145) 04/07/25 10:25
Potassium 4.2 mmol/L (3.5-5.1) 04/07/25 10:25
Chloride 100 mmol/L (98-107) 04/07/25 10:25
Carbon Dioxide 28 mmol/L (22-30) 04/07/25 10:25
BUN 23 mg/dl (7-17) H 04/07/25 10:25
Creatinine 0.9 mg/dL (0.6-1.0) 04/07/25 10:25
Calcium 9.6 mg/dl (8.4-10.2) 04/07/25 10:25
Total Bilirubin 0.9 mg/dl (0.2-1.3) 04/07/25 10:25
AST 24 U/L (14-36) 04/07/25 10:25
ALT 14 U/L (0-35) 04/07/25 10:25
Alkaline Phosphatase 62 U/L (38-126) 04/07/25 10:25
Diagnostic Image Results:
CT ab
IMPRESSION:
There is stranding along the distal descending colon which appears to be associated with the colonic diverticulum and likely represents acute diverticulitis.
Moderate colonic and rectal stool burden, likely representing constipation.
Chronic left adrenal thickening.
CT lung
IMPRESSION:
1. No evidence of pulmonary embolism.
2. There is decreased size of the right hilar/mediastinal malignancy with decreased associated local mass effect. There is moderate/severe stenosis within the mid/lower superior vena cava although this now appears patent. There is decreased mass
effect on the right pulmonary arteries and veins as well as the right middle and upper lobe bronchi.
3. There is decreased opacification within the right upper lobe with residual nodular opacities measuring up to 2.4 cm posteriorly. These may be due to a resolving superimposed infectious process although metastasis cannot be excluded. Recommend
continued follow-up.
4. Decreased right-sided pleural effusion which is now small. Resolution the previously seen left-sided pleural effusion.
CT 03/04/25
LIVER: Normal in size and configuration. Patchy areas of hyperenhancement in the left hepatic lobe related to superior vena cava syndrome/central venous exclusion in the superior chest, via anterior abdominal wall collateral veins. Otherwise,
suboptimal enhancement of the hepatic parenchyma due to the phase of the scan and central venous occlusion in the superior chest. Disc phenomenon limits detection of hepatic metastasis. The central portal veins are patent.
BILE DUCTS: No intrahepatic or extrahepatic bile duct dilation.
GALLBLADDER: No calcified gallstones. The gallbladder is not pathologically dilated.
PANCREAS: Tiny subcentimeter hypoattenuating lesion in the pancreatic body (arrow on series 201, image 132. No main pancreatic duct dilation.
SPLEEN: Unremarkable.
ADRENAL GLANDS: Indeterminate diffuse left adrenal thickening and a 1.3 cm hypoattenuating nodule (series 201, image 102). There is again a subcentimeter calcification in the left adrenal gland (series 201, image 117). The right adrenal gland is
unremarkable.
KIDNEYS/URETERS: Mild bilateral pelvocaliectasis without hydroureter, likely secondary to fluid-filled bladder. Small bilateral renal cortical cysts.
BLADDER: Unremarkable.
REPRODUCTIVE ORGANS: The uterus is small. Dilated periuterine and bilateral adnexal veins. Pelvic floor laxity.
BOWEL: No bowel obstruction. Diffuse colonic diverticulosis without diverticulitis. No acute appendicitis.
PERITONEUM/RETROPERITONEUM: No fluid collection, ascites, or pneumoperitoneum.
LYMPH NODES: No abdominal or pelvic lymphadenopathy by size criterion.
VESSELS: No abdominal aortic aneurysm [ABAN00]. Mild ectasia of bilateral common iliac arteries, measuring 1.5 cm in diameter on the right, and 1.3 cm on the left. Diffuse atherosclerosis. Admixture of opacified and unopacified blood in the systemic
venous system due to collateral venous drainage from superior vena cava obstruction from malignant mass in the right hemithorax. This admixture of blood creates the pseudo-thrombus appearance such as in the left renal vein, right external iliac vein
and right common femoral vein.
ABDOMINAL/PELVIC WALL: Mild diffuse subcutaneous edema, greater on the left. Opacified collateral veins coursing in the abdominopelvic wall.
Prior GI Procedures:
EGD:
Colonoscopy: 09/11/08
Findings:
Multiple large-mouthed diverticula were found in the sigmoid colon. A
sessile polyp was found in the sigmoid colon. The polyp was 3 mm in
size. The polyp was removed with a Fluidinfombo cold forceps. Resection and
retrieval were complete. Estimated blood loss was minimal.
Assessment / Plan
-
79yoF PMH hypothyroidism, HTN, 60pack year hx, small cell lung cancer right hilum stage IIIB dx January s/p 1 round of emergent chemotherapy inpt at [facility] for SVC syndrome 03/04/25 presenting with constipation and hypotension concerning for
stercoral colitis.
AFVSS after fluid bolus. BP on presentation down to 75/54, resolved WNL after 500ml bolus. Pt reports 4-5 days of constipation with the feeling of stool at the anal verge and unable to defecate. No abdominal pain, nausea or vomiting. WBC 21.6. Pt
denies fevers or chills. Concern for stercoral colitis. Possible chemotherapy constipation, less likely given its presentation almost a month after. Not neutropenic, so reasonable to start with an enema followed with regular bowel regimen.
#possible stercoral colitis
- Continue abx, IVF
- Consider enema and bowel regimen
PENDING ATTENDING RECOMMENDATIONS
-
-
Thank you for consultation and allowing me to participate in the patient's care. Please call the computer applications developer GI physician during the after hours with any questions or concerns.
[2025-04-07 15:23] LABS: Urine Character Clear (Clear)
[2025-04-07 15:32] LABS: Urine Squamous Cell >30 /LPF (Few); Urine White Cell 0-2 /HPF (0-5)
[2025-04-07] MEDS: LR 1000 IV (16:15)
[2025-04-07] MEDS: ZOSYN 50 IV ×2 (17:24→23:55)
[2025-04-07] MEDS: FLUSH (NSS) 2 FLUSH IV (23:56)
[2025-04-08] VITALS (7 sets, daily range): BP systolic 116–145; BP diastolic 67–96; O2SAT 98; BMI 24.7
[2025-04-08] MEDS: LR 1000 IV (02:02)
[2025-04-08] MEDS: MELATONIN 3 MG PO ×2 (02:15→22:21)
[2025-04-08] MEDS: ZOSYN 50 IV ×4 (05:58→23:22)
[2025-04-08] MEDS: FLUSH (NSS) 2 FLUSH IV (05:59)
[2025-04-08 07:56] LABS: Hematocrit 27.2 % (37.0-47.0); Hemoglobin 8.9 g/dL (12.0-16.0); Mean Corp Hgb Conc. 32.7 g/dL (33.0-37.0); Mean Corpuscular Volume 95.8 fL (81.0-99.0); Nucleated Red Blood Cells % 0 %; Platelet Count 212 10^3/uL (130-400); Red Cell Dist. Width 17.8 % (11.5-14.5)
[2025-04-08] MEDS: MIRALAX 17 GRAMS PO (08:29)
[2025-04-08] MEDS: CITROMA 300 ML PO (08:29)
[2025-04-08 08:36] LABS: ALT (SGPT) < 10 U/L (0-35); AST (SGOT) 18 U/L (14-36); Albumin 3.1 g/dl (3.5-5.0); Alkaline Phosphatase 59 U/L (38-126); Blood Urea Nitrogen 14 mg/dl (7-17); Calcium 9.0 mg/dl (8.4-10.2); Carbon Dioxide 29 mmol/L (22-30); Chloride 103 mmol/L (98-107); Estimated Creatinine Clearance 57 ml/min; Glucose 96 mg/dl (70-99); Magnesium 2.1 mg/dl (1.6-2.3); Potassium 4.0 mmol/L (3.5-5.1); Sodium 136 mmol/L (135-145); Total Protein 5.8 g/dl (6.3-8.2); eGFR > 60.00
--- NOTE | 2025-04-08 09:06 | W.PN.GI.CBS2 ---
Addendum entered and electronically signed by Orin Hills Do, MD 04/08/25 13:24:
I saw and evaluated the patient. I reviewed the resident�s note and agree with findings and plan as documented in the resident�s note.
Antonieta drank mag citrate this AM and had milk of molasses enema last night. Today with large BM. Much improvement in rectal pressure. Resolution of nausea. VSS NTTP, chronically ill appearing Labs reviewed
Recommendations
- C/w miralax daily to prevent recurrent constipation
- Ok to stop abx
- Adv to regular diet
- She is moving to [place] soon and will establish GI care there. Maybe benefit from OP colonoscopy
GI will sign off please call for ?
Original Note:
Today's Communication / Plan
-
PENDING ATTENDING RECOMMENDATIONS
Daily miralax
can advance diet as tolerated once pt defecates
Assessment / Plan
-
79yoF PMH hypothyroidism, HTN, 60pack year hx, small cell lung cancer right hilum stage IIIB dx January s/p 1 round of emergent chemotherapy (cisplatin, etoposide) inpt at [facility] for SVC syndrome 03/04/25 presenting with constipation and hypotension
concerning for stercoral colitis.
Pt was sent to the ED from outpt oncology appointment with Dr. Mendosa planned for second round of chemotherapy for weakness. She was found to be hypotensive on arrival and complaining of constipation. Pt reports 4-5 days of constipation with the
feeling of stool at the anal verge and unable to defecate. No abdominal pain, nausea or vomiting. WBC 21.6. Pt denies fevers or chills. Concern for stercoral colitis. Possible chemotherapy constipation, less likely given its presentation almost a
month after. Possible opioid related constipation. Not neutropenic, so reasonable to start with an enema followed with regular bowel regimen.
Pt received milk of molasses enema without success last night, complaining of continued constipation this morning. She consumed most of her Mg citrate this morning with success of large BM.
#possible stercoral colitis
#constipation, possibly opioid related
- Continue abx, IVF
- Daily miralax
- Can advance diet as tolerated once pt defecates
Subjective
Subjective
Date of Service: April 08, 2025
Pt reports continuing to feel constipated and bloated, reporting the feeling of stool at the anal verge persists. She reports having minimal liquid stool overnight.
Objective
Data Reviewed
Laboratory Data:
Laboratory Results
04/08/25 07:08
04/08/25 07:08
Laboratory Results
Magnesium 2.1 mg/dl (1.6-2.3) 04/08/25 07:08
Total Bilirubin 0.6 mg/dl (0.2-1.3) 04/08/25 07:08
AST 18 U/L (14-36) 04/08/25 07:08
ALT < 10 U/L (0-35) 04/08/25 07:08
Alkaline Phosphatase 59 U/L (38-126) 04/08/25 07:08
Vital Signs and I&O:
Vital Signs
Temp Pulse Resp BP Pulse Ox
98.3 F 78 16 120/73 98
04/08/25 07:50 04/08/25 07:50 04/08/25 07:50 04/08/25 07:50 04/08/25 07:50
I&O
04/07/25 04/08/25 04/09/25
06:59 06:59 06:59
Intake Total 1919
Balance 1919
Physical Exam
Physical Exam
HEENT: Anicteric, Moist mucous membranes and Other (ill appearing)
Cardiology: Normal Sinus Rhythm
Pulmonary: Other (nonlabored breathing)
GI: Soft, Distended (stool palpable ) and Non Tender
Extremities: Warm
Neuro: Non Focal
[2025-04-08] MEDS: ALTACE 10 MG PO (09:47)
[2025-04-08] MEDS: XARELTO 15 MG PO ×2 (09:47→22:20)
--- NOTE | 2025-04-08 10:37 | W.PN.HOSP.TC ---
Today's Communication/Plan
-
see A/P
Assessment / Plan
Assessment / Plan
HPI: 79 yo F PMH lung cancer on chemo, superior vena cava syndrome, chronic hypoxic respiratory failure, COPD, Recent left arm deep vein thrombosis; p/w constipation and weakness.
She was recently at [facility] and has chest tubes placed for pleural effusions, had pneumothorax and was discharged on home O2.
CT PE study
1. No evidence of pulmonary embolism.
2. There is decreased size of the right hilar/mediastinal malignancy with decreased associated local mass effect.
There is moderate/severe stenosis within the mid/lower superior vena cava although this now appears patent.
There is decreased mass effect on the right pulmonary arteries and veins as well as the right middle and upper lobe bronchi.
3. There is decreased opacification within the right upper lobe with residual nodular opacities measuring up to 2.4 cm posteriorly.
These may be due to a resolving superimposed infectious process although metastasis cannot be excluded. Recommend continued follow-up.
4. Decreased right-sided pleual effusion which is now small. Resolution the previously seen left-sided pleural effusion.
CT Abd/pelvis W Iv Cont
There is stranding along the distal descending colon which appears to be associated with the colonic diverticulum and likely represents acute diverticulitis.
Moderate colonic and rectal stool burden, likely representing constipation.
Chronic left adrenal thickening.
A/P:
# Constipation with likely diverticulitis
Constipation possibly opioid related- resolved per pt
CT suggest acute diverticulitis - uncomplicated vs stercoral colitis
GI consulted
cont empiric Zosyn,
Cont bowel regimen Senokot-S BID, miralax daily
# Hypotension, resolved
observe off additional IVF
Resume MEMBERSHIP COUNSELOR ramipril at decreased dose 2.5 mg daily (MEMBERSHIP COUNSELOR 10 mg daily) with hold parameter
# Chronic hypoxic RF on home O2 1L NC
Stable
# LUE DVT 02/07/25.
# HX SVC syndrome
on Xarelto for LUE DVT (cannot afford Eliquis)
# HX COPD
# HX Small cell lung CA
Known to Dr Mendosa ([facility])
# Hypothyroidism
on levothyroxine 137 mcg daily.
# Hyperlipidemia
on simvastatin.
# Tobacco dependence
stopped smoking on March 07
DVT Px: on MEMBERSHIP COUNSELOR Xarelto
Code: Full
Dispo: PT OT eval
DW RN
DW Pharm
total time 51 min
Anticipated Discharge: 24 - 48 hours
Subjective/Interval History
-
Date of Service: April 08, 2025
Objective Data
-
Labs:
Laboratory Results
04/08/25
07:08
WBC 8.7
Hgb 8.9 L
Hct 27.2 L
Plt Count 212
Sodium 136
Potassium 4.0
Chloride 103
Carbon Dioxide 29
BUN 14
Creatinine 0.8
Glucose 96
Calcium 9.0
Total Bilirubin 0.6
AST 18
ALT < 10
Alkaline Phosphatase 59
Vital Signs:
Vital Signs
Temp Pulse Resp BP Pulse Ox
36.8 C 78 16 120/73 98
04/08/25 07:50 04/08/25 07:50 04/08/25 07:50 04/08/25 07:50 04/08/25 07:50
I&O
04/07/25 04/08/25 04/09/25
06:59 06:59 06:59
Intake Total 1919
Balance 1919
Review of Systems
-
History Source: Patient
All other systems: Reviewed and negative
Abdomen/GI: Denies Constipated (resolved per pt )
Physical Exam
-
General: Well Developed, Well Nourished, Comfortable, Respiratory Distress (chronic) and Conversant
HEENT: Normocephalic, Atraumatic, Nose Appears Normal, Ears Appear Normal and Oxygen (1-2L NC)
Respiratory: Clear to Auscultation and Non Labored Respirations; Negative Accessory Resp Muscle Use
Cardiac: Regular Rhythm and S1/S2
GI: Soft, Nontender, Nondistended and Normal Bowel Sounds
Skin: Warm and Dry
Neuro: Awake, Alert, Oriented and AO x 3
Psych: Calm and Intact Judgement/Insight
Data Reviewed
-
CT Scan: Report Reviewed by me and Discussed with Patient
Labs: Labs Reviewed by me
[2025-04-08] MEDS: SENOKOT-S 1 TABLET PO (11:38)
--- NOTE | 2025-04-08 12:36 | VNURNOTE ---
Chart reviewed. Patient is current with [facility]. Will continue to follow hospital course and DC plans.
--- NOTE | 2025-04-08 14:38 | WOUNDNOTE ---
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
constipation.
See H&P for complete history.
PMH: Superior vena cava syndrome.
2. Acute hypoxic respiratory failure.
3. Large obstructing lung mass.
4. Acute chronic obstructive pulmonary disease exacerbation.
5. Possible community-acquired pneumonia.
6. Recent left arm deep vein thrombosis.
Per chart review, patient stopped smoking on March 07.
Wound Location and type/assessment: Patient admitted with stage 3 sacral PI. Patient reports she thinks she got the wound by laying on back too often. Patient now aware that she needs to move and off-load to help heal wound. Patient demonstrates
ability to turn in bed without assistance. She reports she in continent but wears incontinent pad 'just in case.' She stated she ambulates with walker several times/day. The wound is covered with slough and undermining is noted from 2 o'clock to 5
o'clock. The surrounding skin is blanchable. Please see work list for additional details and measurements.
Appetite: Patient reports improving appetite.
Pressure redistribution devices in place: Patient is on a Versa Care Accumax. Patient declining use of air overlay or air bed, as she said she likes the bed she is and is willing and able to turn frequently. Patient also refusing bariatric air
cushion for additional off-loading as she said she has tried in the past and did not find it helpful.
Plan: Will recommend Santyl to help remove slough. Reviewed all aspect of care to help heal wound such as off-loading and repositioning and managing current health conditions. Will confirm orders with hospitalist and update nurse. Updated care plan
and will follow as needed.
Note to case management of equipment requested for discharge:
Recommend follow up at wound care center upon discharge.
--- NOTE | 2025-04-08 16:27 | CM ---
commercial lines account manager reviewed patient's chart and met with patient and patient lives alone is currently staying at [facility] a hotel in area, patient is currently receiving chemo treatment, patient's hotel room is on 1st floor no steps to
enter, patient is independent with adl's and uses a walker wit ambulation. Patient is currently on oxygen with portable concentrator, patient thinks she uses [employer] company, will need to confirm, patient is taking about selling her home and
moving to [place], per patient her son lives in [place] and she would be moving to be closer to family. Per patient her current oxygen company supples oxygen in [place] area. Patient has been set up with [employer], [place]. Patient says she is
[facility] with [facility]
PCP: Dr Peña
Pharmacy: [facility]
Plan; Home with [facility], patient does not want skilled placement.
[2025-04-08] MEDS: LIPITOR 10 MG PO (17:17)
[2025-04-08] MEDS: SENOKOT-S PO (22:20)
[2025-04-09 03:28] VITALS: BP 132/76
[2025-04-09] MEDS: ZOSYN 50 IV (06:02)
[2025-04-09] MEDS: SYNTHROID 137 MCG PO (06:02)
[2025-04-09 06:43] LABS: Hematocrit 28.9 % (37.0-47.0); Hemoglobin 8.9 g/dL (12.0-16.0); Mean Corp Hgb Conc. 30.8 g/dL (33.0-37.0); Mean Corpuscular Volume 98.3 fL (81.0-99.0); Platelet Count 215 10^3/uL (130-400); Red Cell Dist. Width 17.7 % (11.5-14.5)
[2025-04-09 07:00] VITALS: BP 146/89
[2025-04-09 07:12] LABS: Blood Urea Nitrogen 10 mg/dl (7-17); Calcium 8.4 mg/dl (8.4-10.2); Carbon Dioxide 29 mmol/L (22-30); Chloride 103 mmol/L (98-107); Estimated Creatinine Clearance 57 ml/min; Glucose 102 mg/dl (70-99); Magnesium 2.2 mg/dl (1.6-2.3); Potassium 3.6 mmol/L (3.5-5.1); Sodium 135 mmol/L (135-145); eGFR > 60.00
[2025-04-09] MEDS: SENOKOT-S PO (09:00)
[2025-04-09] MEDS: KCL 40 MEQ PO (09:00)
[2025-04-09] MEDS: ALTACE 2.5 MG PO (09:00)
[2025-04-09] MEDS: MIRALAX PO (09:00)
[2025-04-09] MEDS: XARELTO 15 MG PO (09:00)
--- NOTE | 2025-04-09 09:28 | W.PN.HOSP.TC ---
Addendum entered and electronically signed by Goldie Menchaca MD 04/14/25 10:06:
# stage 3 sacral PI.
Original Note:
Today's Communication/Plan
-
see A/P
Assessment / Plan
Assessment / Plan
HPI: 79 yo F PMH lung cancer on chemo, superior vena cava syndrome, chronic hypoxic respiratory failure, COPD, Recent left arm deep vein thrombosis; p/w constipation and weakness.
She was recently at [facility] and has chest tubes placed for pleural effusions, had pneumothorax and was discharged on home O2.
CT PE study
1. No evidence of pulmonary embolism.
2. There is decreased size of the right hilar/mediastinal malignancy with decreased associated local mass effect.
There is moderate/severe stenosis within the mid/lower superior vena cava although this now appears patent.
There is decreased mass effect on the right pulmonary arteries and veins as well as the right middle and upper lobe bronchi.
3. There is decreased opacification within the right upper lobe with residual nodular opacities measuring up to 2.4 cm posteriorly.
These may be due to a resolving superimposed infectious process although metastasis cannot be excluded. Recommend continued follow-up.
4. Decreased right-sided pleual effusion which is now small. Resolution the previously seen left-sided pleural effusion.
CT Abd/pelvis W Iv Cont
There is stranding along the distal descending colon which appears to be associated with the colonic diverticulum and likely represents acute diverticulitis.
Moderate colonic and rectal stool burden, likely representing constipation.
Chronic left adrenal thickening.
A/P:
# Constipation with likely diverticulitis
Constipation possibly opioid related- resolved per pt
CT suggest acute diverticulitis - uncomplicated vs stercoral colitis
cont empiric Zosyn, to switch to Flagyl/Levaquin for 3 more days after DC (total course 5 days)
Cont bowel regimen Senokot-S BID, miralax if taking opiate
Appreciate GI input
# Hypotension, resolved
observe off additional IVF
Resumed BREEDING TECHNICIAN ramipril at decreased dose 2.5 mg daily, can resume BREEDING TECHNICIAN dose 10 mg daily after DC
# Chronic hypoxic RF on home O2 1L NC
Stable
# LUE DVT 02/07/25.
# HX SVC syndrome
on Xarelto BID for LUE DVT (cannot afford Eliquis), starting 04/12 to change dose to 20 mg HS
# HX COPD
# HX Small cell lung CA
Known to Dr Mendosa ([facility])
# Hypothyroidism
on levothyroxine 137 mcg daily.
# Hyperlipidemia
on simvastatin.
# Tobacco dependence
stopped smoking on March 07
DVT Px: on BREEDING TECHNICIAN Xarelto
Code: Full
Dispo: PT OT recc SNF, however patient does not want skilled placement. DC [facility],
Anticipated Discharge: Today
Subjective/Interval History
-
Date of Service: April 09, 2025
Objective Data
-
Labs:
Laboratory Results
04/09/25
05:38
WBC 7.5
Hgb 8.9 L
Hct 28.9 L
Plt Count 215
Sodium 135
Potassium 3.6
Chloride 103
Carbon Dioxide 29
BUN 10
Creatinine 0.8
Glucose 102 H
Calcium 8.4
Vital Signs:
Vital Signs
Temp Pulse Resp BP Pulse Ox
36.7 C 91 20 146/89 96
04/09/25 07:00 04/09/25 07:00 04/09/25 07:00 04/09/25 07:00 04/09/25 07:00
I&O
04/08/25 04/09/25 04/10/25
06:59 06:59 06:59
Intake Total 1919
Balance 1919
Review of Systems
-
History Source: Patient
All other systems: Reviewed and negative
Abdomen/GI: Denies Constipated (resolved per pt )
Physical Exam
-
General: Well Developed, Well Nourished, Comfortable, Respiratory Distress (chronic) and Conversant
HEENT: Normocephalic, Atraumatic, Nose Appears Normal, Ears Appear Normal and Oxygen (1-2L NC)
Respiratory: Clear to Auscultation and Non Labored Respirations; Negative Accessory Resp Muscle Use
Cardiac: Regular Rhythm and S1/S2
GI: Soft, Nontender, Nondistended and Normal Bowel Sounds
Skin: Warm and Dry
Neuro: Awake, Alert, Oriented and AO x 3
Psych: Calm and Intact Judgement/Insight
Data Reviewed
-
CT Scan: Report Reviewed by me and Discussed with Patient
Labs: Labs Reviewed by me
--- NOTE | 2025-04-09 10:18 | W.DCSUMMARY ---
Discharge Summary
Discharge Data
Date of Admission: 04/07/25
Date of Discharge: 04/09/25
Total time spent discharging patient (in min): 40
-
Pending Results: No
Hospital Course
Principal Diagnosis:
Constipation with likely diverticulitis
Constipation possibly opioid related- resolved
Chronic Diagnoses:�
Chronic hypoxic respiratory failure on home O2 at 1L NC, stable
LUE DVT 02/07/25.
History of SVC syndrome
History of COPD
History of small cell lung cancer
Hypothyroidism on levothyroxine 137 mcg daily.
Hyperlipidemia on simvastatin.
Tobacco dependence
Consultations:�
Gastroenterology
Procedures:�
None
Clinical course:�
This is a 79 -year-old female with past medical history as stated above, who presented with constipation and weakness.
Problem 1:
Constipation with likely diverticulitis.
Constipation possibly opioid related- resolved.
Her CT AP suggest acute diverticulitis- uncomplicated vs stercoral colitis.
She was started with empiric Zosyn while in the hospital, and was discharged with Flagyl/Levaquin for 3 more days (total course 5 days).
She has been informed to continue bowel regimen with Senokot-S BID if taking opiate.
Problem 2:
Hypotension, resolved.
Her prior to admission ramipril was restarted but at a lower dose while in the hospital.
She can continue previous ramipril dose at 10 mg daily following discharge.
As for the rest of her medical problems, they were stable during her hospital stay.
Discharge Plan
-
Patient Disposition: Home with Home Care
Discharge Diagnosis/Procedures: Constipation with likely diverticulitis;
Constipation possibly opioid related;
LUE DVT 02/07/25;
History of SVC syndrome;
Small cell lung cancer with chronic hypoxic respiratory failure
Condition: Fair
Diet: As tolerated
Activity: As tolerated
Driving Restrictions: As prior to admission
Wound Care: Wound Care Instructions
Stage 3 Sacral Wound- Clean with normal saline or soap and water. Apply KRISTIE THICK LAYER OF SANTYL and cover with adaptic and silicone foam dressing. Change daily.
Keep sacrum off-loaded by turning frequently and ambulating
Ensure adequate intake protein and calories
Follow up at wound care center call for an appointment.
Referrals:
Angelito Pñea I., DO [[facility], Internal Medicine] - in less than 1 week
Additional Discharge Medication Instructions: For Xarelto, continue 15 mg twice daily until 04/11, starting 04/12 change dose to daily 20 mg HS
Continue Flagyl/Levaquin for 3 more days
Take Senokot-S with opiate
Prescriptions:
New
sennosides-docusate sodium [Senna Plus] 8.6-50 mg Tablet
1 tab PO BID PRN (Reason: Constipation) Qty: 20 0RF
Xarelto 20 mg Tablet
20 mg PO QPM Qty: 30 0RF
Rx Instructions:
start 20 mg HS in 04/12/2025
levofloxacin 750 mg tablet
750 mg PO DAILY 3 Days Qty: 3 0RF
metronidazole 500 mg tablet
500 mg PO TID 3 Days Qty: 9 0RF
Continued
levothyroxine [Synthroid] 137 mcg Tablet
137 mcg PO MOTUWETHFRSA
simvastatin [Zocor] 20 mg Tablet
20 mg PO DAILY
ramipril 10 mg Capsule
10 mg PO DAILY
Xarelto 15 mg Tablet
15 mg PO BID 3 Days Qty: 6 0RF
Rx Instructions:
take 15mg bid until 04/12, starting 04/12 change dose to 20 mg HS
Discharge Orders:
Discharge Patient (As Directed); Ordered 04/09/25
Ordered By: Goldie Menchaca
Discharge Date and Time
Print Language: GIBRALTARIAN
--- NOTE | 2025-04-09 10:51 | CM ---
Met with patient at bedside
IMM benefit explained; form signed @ [id number]
Patient reported that her Son will provide transport home
Patient refuses to go to SNF; agreeable to resumption of Home Health
Plan: Discharge to home today w/ [facility]
[2025-04-09 11:00] VITALS: BP 131/72
[2025-04-09] MEDS: ZOSYN IV (12:17)
--- NOTE | 2025-04-10 08:11 | PN.CDI ---
CDI
- -
CDI:
Physician Documentation Request
Admit Date: 04/07/25 14:36
Dear Doctor,
Patient admitted for diverticulitis.
04/08 Wound Care Note: 'Patient admitted with stage 3 sacral PI. Patient reports she thinks she got the wound by laying on back too often...The wound is covered with slough and undermining is noted from 2 o'clock to 5 o'clock. The surrounding skin
is blanchable.'
Physician documentation of the type and location of wounds is required for compliant documentation. Based on the above clinical findings and your assessment, please provide the following in your progress note:
1. Location of the ulcer/wound, including laterality.
2. Type (etiology) of ulcer/wound:
- Diabetic ulcer
- Arterial (ischemic) ulcer
- Traumatic wound
- Venous stasis ulcer
- Pressure (decubitus) ulcer
- Non-healing surgical wound
- Other
- Unable to determine
3. For a non-pressure ulcer, please indicate the depth/severity:
- Limited to the breakdown of skin
- With fat layer exposed
- With necrosis of muscle
- With necrosis of bone
- Other
- Unable to determine
4. If a pressure ulcer, please also include the stage* of the ulcer:
- Stage 1 - Skin intact, non-blanchable redness
- Stage 2 - Partial thickness loss of dermis, includes intact or open blister
- Stage 3 - Full thickness tissue not including bone, tendon or muscle
- Stage 4 - Full thickness tissue loss, including exposed bone, tendon or muscle
- Unstageable - Full thickness loss in which the base of the ulcer is covered by slough (yellow, hill, voss, green or brown) and/or eschar (hill, brown or black) in the wound bed.
- Unable to determine
Use of terms such as suspected, likely, concern for, or probable (associated with a specific diagnosis that is being evaluated, monitored, or treated as if it exists) are acceptable and can be coded in the inpatient setting, when documented at the
time of discharge.
Thank you,
Zaria Watson RN, BSN
CDI Specialist
Available via [employer] text
Please use your independent medical judgment in providing your response.
*Source: National Pressure Ulcer Advisory Panel (NPUAP)
== END 2025-04-09 12:50 | disposition home health service (06) | DRG 391 ==
LOC: 2 NORTH 14:36
PROVIDERS: Clinical Nurse Specialist Family Health; ADMITTING PHYSICIAN Internal Medicine; ATTENDING PHYSICIAN Internal Medicine; CONSULT PHYSICIAN Internal Medicine Gastroenterology; EMERGENCY PHYSICIAN Student in an Organized Health Care Education/Training Program; FAMILY PHYSICIAN Internal Medicine
DX: K57.32 Diverticulitis of large intestine without perforation or abscess without bleeding (principal); L89.153 Pressure ulcer of sacral region, stage 3; I87.1 Compression of vein; C34.90 Malignant neoplasm of unspecified part of unspecified bronchus or lung; J44.1 Chronic obstructive pulmonary disease with (acute) exacerbation; J96.11 Chronic respiratory failure with hypoxia; K59.03 Drug induced constipation; E03.9 Hypothyroidism, unspecified; J44.9 Chronic obstructive pulmonary disease, unspecified; E78.5 Hyperlipidemia, unspecified; Z79.890 Hormone replacement therapy; F17.200 Nicotine dependence, unspecified, uncomplicated; I95.9 Hypotension, unspecified; Z86.718 Personal history of other venous thrombosis and embolism; Z79.01 Long term (current) use of anticoagulants; I10 Essential (primary) hypertension; Z88.5 Allergy status to narcotic agent; Z79.899 Other long term (current) drug therapy; D64.81 Anemia due to antineoplastic chemotherapy; Z86.0100 Personal history of colon polyps, unspecified; T45.1X5A Adverse effect of antineoplastic and immunosuppressive drugs, initial encounter; Z99.81 Dependence on supplemental oxygen; Z11.52 Encounter for screening for COVID-19
CPT/HCPCS: 71275; 74177; 80048; 80053; 81003; 81015; 82330; 83605; 83735; 84443; 85025; 85027; 87040; 87502; 87811; 96361; 96365; 96366; 96367; 97162; 97167; 99285; 99406; Q9967